=== PATIENT | female | born 1955 | race Caucasian/White ===

== ENCOUNTER 2018-07-15 02:28 | Observation (INO) ==
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
[2018-07-15] MEDS ORDERED: IPRATROPIUM/ALBUTEROL 3 ML AMPUL.NEB NEB ONE (03:36)
[2018-07-15 04:16] LABS: Basophils # (Auto) 0 K/mcL (0.0-0.3); Basophils % (Auto) 0.6 % (0.0-2.0); Eosinophils # (Auto) 0.2 K/mcL (0.0-0.7); Eosinophils % (Auto) 4.9 % (0.0-7.0); Granulocytes % (Auto) 58.9 % (38.0-78.0); Lymphocytes # (Auto) 1.2 K/mcL (1.5-4.8); Lymphocytes % (Auto) 24.3 % (15.5-49.0); Mean Cell Volume 91.5 fL (80.0-100.0); Mean Corpuscular HGB Conc 33.4 g/dL (31.0-36.0); Monocytes # (Auto) 0.6 K/mcL (0.1-0.9); Monocytes % (Auto) 11.3 % (1.0-12.0); Platelet Count 287 K/mcL (140-440); Red Cell Distribution Width 13.1 % (11.5-14.5)
[2018-07-15 04:43] LABS: ALT/SGPT 20 U/l (0-40); Albumin/Globulin Ratio 1.5 (1.0-2.3); Alkaline Phosphatase 118 U/L (39-117); Blood Urea Nitrogen 13 mg/dl (8-23); C-Reactive Protein < 0.3 mg/dl (0.0-0.8); Lipase 85 U/L (7-60)
--- NOTE | 2018-07-15 05:35 | Cat Scan Report ---
CLINICAL INFORMATION: Flank pain COMPARISON: 01/31/[address] TECHNIQUE: 0.625 mm helical slices were obtained from the mid heart through the subtrochanteric regions. Following reconstruction, 2.5 mm sagittal, coronal and axial reformatted images were processed and reviewed at bone and soft tissue windows.The exam was performed using radiation dose optimization techniques including, but not limited to, automated exposure control, adjustment of the mA and/or kV according to patient size and use of iterative reconstruction technique. FINDINGS: Both noncontrasted kidneys are normal and symmetric in size, position, configuration and attenuation: Left is 10.8 x 4.5 cm and the right is 10.5 x 4.8 cm. There is no evidence of renal stone, hydronephrosis or other focal renal lesion. Urinary bladder is unremarkable. Lung bases show no abnormality. No effusion. The visualized heart is grossly normal. Images through the abdomen show the noncontrasted liver to be normal. Gallbladder is surgically absent.The intrahepatic and extra hepatic bile ducts are normal caliber: CBD is 5 mm. The adrenal glands, spleen, pancreas are normal in size, configuration and attenuation. There are surgical clips along the infrarenal abdominal wall - presumably due to interval aortic graft placement. Lack of intravenous contrast precludes aortic lumen evaluation. Images through the pelvis show hysterectomy/oophorectomy changes. The stomach, duodenal bulb and descending duodenum are markedly dilated with abrupt tapering at the descending/transverse duodenal junction into a diminutive transverse duodenum. The remainder of the small and large bowel show mild symmetric dilatation compatible with moderate ileus. No free air, free fluid or adenopathy. Bone windows show severe degenerative disc disease in the lower lumbar spine IMPRESSION: 1. No evidence of stone or hydronephrosis - both noncontrasted kidneys, upper collecting systems, and urinary bladder are normal. 2. Marked dilatation of the stomach, duodenal bulb and descending duodenum with abrupt narrowing in the proximal transverse duodenum. This could indicate partial duodenal obstruction. Consider either upper endoscopy or small bowel follow through study with water-soluble contrast. 3. Mild ileus 4. Surgical clips around the infrarenal abdominal aorta presumably due to interval placement of an aortic graft. On the previous CT, there was a critical stenosis in the infrarenal abdominal aorta Interpreted and Authenticated by: José Bradford 07/15/18
[2018-07-15 07:55] LABS: Appearance,Urine CLEAR; Bacteria,Urine 0 /hpf (0); Bilirubin,Urine NEG (NEG); Color,Urine YELLOW; Glucose,Urine (UA) NEGATIVE (NEG); Leukocyte Esterase,Urine NEG /uL (NEG); Mucus,Urine FEW /hpf (0); Protein,Urine 30 mg/dL (NEG); Specific Gravity,Urine 1.021 (1.000-1.035); Urine Amorphous Crystals FEW /hpf (0); Urine Blood NEG mg/dL (<0.03); Urine Hyaline Cast 4 /lpf (0-2); Urine RBC < 1 /hpf (0-1); Urine Squamous Epithelial Cell < 1 /hpf (0-4); Urine WBC 1 /hpf (0-4); Urobilinogen,Urine NEG (NEG)
--- NOTE | 2018-07-15 10:22 | Internal Medicine Consult Note ---
Medical - CN: HPI - Data of Consult Patient: new to practice Consult date: 07/15/18 Primary Care Provider: Nikki Lopes - Consult Narrative Reason for consult: abdominal pain, abnormal CT History of present illness: Ms. Olmstead is a 62 year old F smoker with a remote history of PUD who has a long history of anxiety and presented to ER after her lorazepam was discontinued. She is a vague and tangential historian and it has take a great deal of time to obtain her history. She initially thought her week long history of vague epigastric pain was due to lorazepam withdrawal, but CT suggested obstruction in the transverse duodenum. She also mentions she has had abdominal pain since undergoing aortic endarterectomy in March. About a week ago, she developed epigastric pain that radiates to the back. It is constantly present and persists despite taking Nexium. Eating worsens the pain. She complains of nausea without vomiting. She has reflux and a history of nutcracker esophagus. She complains of dysphagia to solids. Weight has been stable. She avoids ASA/NSAIDS in light of her history of PUD. 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 She has been having increased trouble with migraine and is taking Tylenol 3. Bowel habit is fairly normal although she has noted red blood with BMs; she has not previously had a colonoscopy and is "not going to go there". She is eager to pursue care outside the [facility] and would like her follow up to be organized with Felisa Urbano at [facility]. CC: - Constitutional Constitutional: Present: as per HPI, headache(s). Absent: anorexia, weight gain, weight loss - Gastrointestinal Gastrointestinal: Present: as per HPI, abdominal pain, dysphagia, heartburn. Absent: coffee ground emesis, melena, vomiting - Psychiatric Psychiatric: Present: as per HPI, anxiety Medical - CN: PMH Medical history: PTSD, anxiety, closed head injury, restless leg syndrome, nutcracker esophagus, "slow gastric emptying", peptic ulcer disease Surgical history: aortic endarterectomy 03/25, cholecystectomy with ERCP, Botox to pylorus, nasal septoplasty, breast biopsy Pertinent family history: Mother cancer, diabetes father diabetes, [place], CVA Social history: Lives alone. Just gave notice at her rental. May soon be homeless as she has not found another living situation. Functional capacity: independent ambulation Smoking status: Current every day smoker Have you smoked in the last 12 months: Yes Drug use: none Alcohol use: none Medical - CN: Meds Home Medications Medication Instructions Recorded Confirmed Type Clopidogrel Bisulfate [Plavix] 75 mg PO DAILY #30 tab 06/01/16 10/15/17 Rx Advair 500-50 Diskus 12/13/16 History Aspirin [Adult Low Dose Aspirin EC] 81 mg PO DAILY 12/13/16 10/15/17 History Esomeprazole Magnesium [Nexium] 20 mg PO DAILY 12/13/16 10/15/17 History Gabapentin TID 12/13/16 History LORazepam [Ativan] 1 mg PO TID 12/13/16 10/15/17 History Levothyroxine Sodium [Synthroid] 112 mcg PO DAILY 12/13/16 10/15/17 History Lisinopril [Zestril] 10 mg PO DAILY 12/13/16 10/15/17 History PARoxetine HCL [Paroxetine HCl] 30 mg PO DAILY 12/13/16 10/15/17 History Trileptal DAILY 12/13/16 History rOPINIRole [Requip] 1 mg PO BID 12/13/16 10/15/17 History Hyoscyamine [Levsin Sr] 0.375 mg PO BID 3 Days #6 06/08/17 10/15/17 Rx tab.sr.12h Cephalexin [Keflex] 250 mg PO QID #40 cap 01/21/18 Rx traMADol [Ultram] 50 mg PO Q4-6HP PRN #14 tablet 01/21/18 Rx Ondansetron [Zofran ODT] 4 mg SL Q4-6HP PRN #10 tab 01/25/18 Rx Peg 3350/Na Sulf,Bicarb,Cl/KCl 4,000 ml PO ONCE #1 oral.daryl 01/31/18 Rx [Golytely] Allergies Allergy/AdvReac Type Severity Reaction Status Date / Time Gatifloxacin [From Tequin] Allergy Rash Verified 06/17/18 12:00 lamotrigine [From Lamictal] Allergy Anaphylaxis Verified 06/17/18 12:00 levofloxacin [From Levaquin] Allergy Rash Verified 06/17/18 12:00 Penicillins Allergy Rash Verified 06/17/18 12:00 pork derived (porcine) Allergy Anaphylaxis Verified 06/17/18 12:00 rice Allergy Swelling Verified 06/17/18 12:00 Sulfa (Sulfonamide Allergy Rash Verified 06/17/18 12:00 Antibiotics) isotretinoin [From Accutane] AdvReac Verified 06/17/18 12:00 nitrofurantoin AdvReac Verified 06/17/18 12:00 [From Macrobid] prednisone AdvReac Anxiety Verified 06/17/18 12:00 Medical - CN: Exam - Constitutional Vitals: Temp Pulse Resp BP Pulse Ox 97.0 F 65 18 111/78 98 07/15/18 02:32 07/15/18 09:46 07/15/18 03:45 07/15/18 09:46 07/15/18 09:46 General appearance: average body habitus, cooperative, no acute distress - Head Head exam: Present: atraumatic, normal inspection, normocephalic - Neck Neck exam: Absent: lymphadenopathy, normal inspection, thyromegaly - Respiratory Respiratory exam: Present: normal respiratory exam, CTAB - Cardiovascular Cardiovascular exam: Present: normal rate and rhythm. Absent: gallop, rubs, systolic murmur - GI/Abdominal GI/Abdominal exam: Present: normal bowel sounds, soft. Absent: organomegaly, rigid Additional comments: no succussion splash - Psychiatric Additional comments: pressured speech - Skin Skin exam: Present: dry, normal color, warm Medical - CN: Result - Labs CBC & Chem 7: 07/15/18 03:26 07/15/18 03:26 Labs: Short CBC 07/15/18 Range/Units 03:26 WBC 5.1 (4.5-11.0) K/mcL Hgb 12.2 (12.0-15.0) g/dL Hct 36.6 (36.0-48.0) % Plt Count 287 (140-440) K/mcL BMP 07/15/18 03:26 Sodium 138 Potassium 3.8 Chloride 99 Carbon Dioxide 26 BUN 13 Creatinine 1.0 Glucose 89 Calcium 9.1 Cardiac Enzymes 07/15/18 Range/Units 03:26 Troponin T < 0.01 (0-0.03) ng/ml Liver Function 07/15/18 Range/Units 03:26 Total Bilirubin < 0.2 (0.0-1.0) mg/dL AST 29 (0-37) U/l ALT 20 (0-40) U/l Alkaline Phosphatase 118 H (39-117) U/L Albumin 4.0 (3.2-5.2) gm/dL Urine 07/15/18 Range/Units 06:51 Urine Color Yellow Urine Appearance Clear Urine pH 8.0 (5.0-9.0) Ur Specific [place] 1.021 (1.000-1.035) Urine Protein 30 A (NEG) mg/dL Urine Glucose (UA) Negative (NEG) mg/dL Medical - CN: A/P (1) Abnormal CT of the abdomen Status: Acute Assessment and plan: CT suggests obstruction of the transverse duodenum. Will check a fasting gastrin for Sylvia-Trujillo syndrome in light of her history of chronic ulcer disease. Will also check a serum salicylate level. Will check ESR/CRP as Crohn's might present like this as well. Will arrange for EGD today. Further recommendations will be forthcoming after EGD.
[2018-07-15] MEDS ORDERED: DIATRIZOATE MEGLU/DIATRIZO SOD 30 ML BOTTLE PO ONE (10:25)
[2018-07-15] MEDS ORDERED: IPRATROPIUM/ALBUTEROL 3 ML AMPUL.NEB NEB PRN (10:38)
[2018-07-15] MEDS ORDERED: ACETAMINOPHEN 1,000 MG/100 ML BOTTLE IV PRN (10:38)
[2018-07-15] MEDS ORDERED: ACETAMINOPHEN 325 MG TABLET PO PRN (10:38)
[2018-07-15] MEDS ORDERED: MAGNESIUM SULFATE 2 GM/50 ML BAG IV PRN (10:38)
[2018-07-15] MEDS ORDERED: ONDANSETRON 4 MG/2 ML VIAL IV PRN (10:38)
[2018-07-15] MEDS ORDERED: traZODone HCL 50 MG TABLET PO PRN (10:38)
[2018-07-15] MEDS: 0.9 % SODIUM CHLORIDE 1,000 ML IV SCH (11:37)
[2018-07-15] MEDS ORDERED: LORazepam 2 MG/ML VIAL IV ONE ×2 (11:40→16:34)
--- NOTE | 2018-07-15 11:41 | Internal Med History&Physical ---
Medical - H&P: HPI Patient information: Note initiated : 07/15/18 at 11:41 am Service Date, if different from initiated Date: [] Patient: Fernanda Olmstead a 62 y/o F admitted on 07/15/18 for Withdrawl From Lorazapam. Chief Complaint: [] Chief complaint: abd pain History of present illness: Ms. Olmstead is a 62 year old F with a history of peripheral vascular disease/AAA and anxiety disorder who presents to the ER with worsening abdominal pain that started roughly 24-hour prior to presentation. Pain is described as an ache from upper abdomen radiating to back, associated with loss of appetite, no associated fever vomiting. Patient had an episode of diarrhea yesterday. She attributes her symptoms are related to withdrawal symptoms recent discontinuation of benzodiazepine. She denies associated fever chills and myalgia chest pain or shortness of breath. Initial workup in the ER was with small bowel obstruction at the transverse duodenum. GI was consulted based on radiology's recommendations for upper endoscopy in light of proximal obstruction. hospitalist service was consulted for evaluation At the time of admission patient does anxious but alert oriented. She was able to answer most questions provide history as above. ROS 10 point ROS performed and is negative except for as discussed above Medical - H&P: PMH Medical history: History of PTSD AAA repair 03/25 Cholecystectomy History of previous Botox/upper endoscopy Nutcracker esophagus Peptic ulcer disease restless leg syndrome Anxiety disorder Pertinent family history: Mother cancer, diabetes father diabetes, [place], CVA Social history: Lives alone Smoking status: Current every day smoker Have you smoked in the last 12 months: Yes Medical - H&P: Meds Home Medications Medication Instructions Recorded Confirmed Type Clopidogrel Bisulfate [Plavix] 75 mg PO DAILY #30 tab 06/01/16 07/15/18 Rx Aspirin [Adult Low Dose Aspirin EC] 81 mg PO DAILY 12/13/16 07/15/18 History Esomeprazole Magnesium [Nexium] 20 mg PO DAILY 12/13/16 07/15/18 History Levothyroxine Sodium [Synthroid] 112 mcg PO DAILY 12/13/16 07/15/18 History Lisinopril [Zestril] 10 mg PO DAILY 12/13/16 07/15/18 History PARoxetine HCL [Paroxetine HCl] 30 mg PO DAILY 12/13/16 07/15/18 History rOPINIRole [Requip] 1 mg PO BID 12/13/16 07/15/18 History Ondansetron [Zofran ODT] 4 mg SL Q4-6HP PRN #10 tab 01/25/18 07/15/18 Rx Albuterol Sulfate 2 puff INH Q4HP PRN 07/15/18 07/15/18 History Budesonide/Formoterol Fumarate 2 puff INH BID 07/15/18 07/15/18 History [Symbicort 80-4.5 Mcg Inhaler] Gabapentin [Neurontin] 900 mg PO TID 07/15/18 07/15/18 History OXcarbazepine [Trileptal] 150 mg PO DAILY 07/15/18 07/15/18 History Allergies Allergy/AdvReac Type Severity Reaction Status Date / Time lamotrigine [From Lamictal] Allergy Severe Anaphylaxis Verified 07/15/18 10:41 pork derived (porcine) Allergy Severe Anaphylaxis Verified 07/15/18 10:41 rice Allergy Intermediate Swelling Verified 07/15/18 10:41 Gatifloxacin [From Tequin] Allergy Mild Rash Verified 07/15/18 10:41 levofloxacin [From Levaquin] Allergy Mild Rash Verified 07/15/18 10:41 Penicillins Allergy Mild Rash Verified 07/15/18 10:41 Sulfa (Sulfonamide Allergy Mild Rash Verified 07/15/18 10:41 Antibiotics) prednisone AdvReac Mild Anxiety Verified 07/15/18 10:41 isotretinoin [From Accutane] AdvReac Verified 06/17/18 12:00 nitrofurantoin AdvReac Verified 06/17/18 12:00 [From Macrobid] Medical - H&P: Exam - Constitutional Vitals: Temp Pulse Resp BP Pulse Ox 97.0 F 65 18 111/78 98 07/15/18 02:32 07/15/18 09:46 07/15/18 03:45 07/15/18 09:46 07/15/18 09:46 General appearance: average body habitus, cooperative, no acute distress Exam: Alert and oriented Pupils symmetric Oral cavity dry No eardischarge Head normocephalic S1 and S2 regular rhythm Diminished breath sounds bases Abdomen soft nondistended minimally tender on palpation Lower extremity no cyanosis clubbing or joint swelling Skin no suspicious lesion Psych alert cooperative minimal anxiety Neurologic nonfocal Medical - H&P: Reslt - Labs CBC & Chem 7: 07/16/18 04:31 07/16/18 04:31 Labs: Short CBC 07/15/18 Range/Units 03:26 WBC 5.1 (4.5-11.0) K/mcL Hgb 12.2 (12.0-15.0) g/dL Hct 36.6 (36.0-48.0) % Plt Count 287 (140-440) K/mcL BMP 07/15/18 03:26 Sodium 138 Potassium 3.8 Chloride 99 Carbon Dioxide 26 BUN 13 Creatinine 1.0 Glucose 89 Calcium 9.1 Cardiac Enzymes 07/15/18 Range/Units 03:26 Troponin T < 0.01 (0-0.03) ng/ml Liver Function 07/15/18 Range/Units 03:26 Total Bilirubin < 0.2 (0.0-1.0) mg/dL AST 29 (0-37) U/l ALT 20 (0-40) U/l Alkaline Phosphatase 118 H (39-117) U/L Albumin 4.0 (3.2-5.2) gm/dL Urine 07/15/18 Range/Units 06:51 Urine Color Yellow Urine Appearance Clear Urine pH 8.0 (5.0-9.0) Ur Specific [place] 1.021 (1.000-1.035) Urine Protein 30 A (NEG) mg/dL Urine Glucose (UA) Negative (NEG) mg/dL Medical - H&P: A/P (1) Partial small bowel obstruction Current visit: Yes Status: Acute * Partial small bowel obstruction-continue bowel rest/crystalloids. GI consult for upper endoscopy in light of CT findings as above proximal transverse duodenum narrowing. Patient will undergo upper endoscopy * Abdominal pain secondary to above-continue bowel rest/opioids as needed * History of aortic aneurysm status post repair. * History of CAD on aspirin and Plavix * Neuropathy on gabapentin * Hypothyroidism continue thyroxine * Anxiety disorder on paroxetine. Benzodiazepine was recently discontinued by primary care physician * Reactive airway disease on Advair * Full code * Prophylaxis Arixtra Plan * Bowel rest * GI consult * Crystalloids/antiemetics/analgesics * Presents to medical condition management as above
[2018-07-15] MEDS ORDERED: KETAMINE HCL 50 MG/ML ML IV PRN (11:52)
[2018-07-15] MEDS ORDERED: MIDAZOLAM 2 MG/2 ML VIAL IV SCH (12:00)
[2018-07-15] MEDS ORDERED: PROPOFOL 200 MG/20 ML VIAL IV SCH (12:00)
[2018-07-15] MEDS ORDERED: PROPOFOL 20 ML IV ONE (15:36)
[2018-07-15] MEDS ORDERED: MIDAZOLAM 2 MG/2 ML VIAL ONE (15:36)
[2018-07-15] MEDS ORDERED: LORazepam 2 MG/ML VIAL ONE (16:40)
[2018-07-15] MEDS: 0.9 % SODIUM CHLORIDE 10 ML SYRINGE IV SCH ×2 (18:29→20:01)
--- NOTE | 2018-07-15 18:36 | XRay Report ---
CLINICAL INFORMATION: rule out bowel obstruction TECHNIQUE: Following dramatic teacher film, interview was administered and serial films were obtained over 90 minutes. COMPARISON: Abdomen pelvic CT 07/15/2018. FINDINGS: The stomach, duodenal bulb and proximal duodenum are moderately dilated with abrupt narrowing in the mid descending duodenum. This results in only partial obstruction. The remainder of the duodenum, jejunum and ileum are normal in contour and caliber. The plica circulares folds and wall are normal and uniform. Small transit time is approximately 80 minutes. IMPRESSION: Moderate symmetric narrowing of the mid descending duodenum resulting in moderate gastric and proximal duodenal dilatation. Etiology is uncertain: this could indicate stricture or extrinsic mass. The CT was performed without either oral or IV contrast making this region more difficult to evaluate. Suggest: Endoscopy Interpreted and Authenticated by: José Bradford 07/15/18
[2018-07-15] MEDS: DOCUSATE SODIUM 100 MG CAPSULE PO SCH (19:54)
[2018-07-15] MEDS ORDERED: SENNOSIDES/DOCUSATE SODIUM 1 TAB TABLET PO SCH (21:00)
[2018-07-15] MEDS ORDERED: HEPARIN 5,000 UNIT/ML VIAL SQ SCH (21:00)
[2018-07-16] MEDS: 0.9 % SODIUM CHLORIDE 10 ML SYRINGE IV SCH (04:16)
[2018-07-16 06:12] LABS: Mean Cell Volume 91.7 fL (80.0-100.0); Mean Corpuscular HGB Conc 33.4 g/dL (31.0-36.0); Platelet Count 279 K/mcL (140-440); RBC 3.91 M/mcL (4.00-5.20); Red Cell Distribution Width 13.3 % (11.5-14.5)
[2018-07-16 07:05] LABS: ALT/SGPT 17 U/l (0-40); Albumin 3.6 gm/dL (3.2-5.2); Albumin/Globulin Ratio 1.4 (1.0-2.3); Alkaline Phosphatase 102 U/L (39-117); Bilirubin,Direct < 0.2 mg/dL (0.0-0.3); Blood Urea Nitrogen 16 mg/dl (8-23); Gamma Glutamyl Transpeptidase 14 U/L (5-36); Uric Acid 4.5 mg/dL (2.5-8.0)
[2018-07-16 08:02] LABS: Band Neutrophils % 2 % (0-10); Eosinophils % (Manual) 1 % (0-7); Lymphocytes % 30 % (15-49); Monocytes % (Manual) 6 % (1-12); Platelet Estimate NORMAL (NORMAL); RBC Morphology NORMAL (NORMAL); Segmented Neutrophils % 61 % (38-78)
[2018-07-16] MEDS: 0.9 % SODIUM CHLORIDE 1,000 ML IV SCH (08:03)
[2018-07-16] MEDS: DOCUSATE SODIUM 100 MG CAPSULE PO SCH (08:26)
[2018-07-16] MEDS ORDERED: FONDAPARINUX SODIUM 2.5 MG/0.5 ML SYRINGE SQ SCH (09:00)
--- NOTE | 2018-07-16 09:20 | Discharge Summary ---
Medical - DS: Prov Patient information: Note initiated : 07/16/18 at 9:16 am Service Date, if different from initiated Date: [] Patient: Fernanda Olmstead 62 y/o F admitted on 07/15/18 for Withdrawl From Lorazapam. Chief Complaint: [] Date of admission: 07/15/18 10:24 Discharge date: 07/16/18 Primary care physician: Nikki Lopes Consults: 07/15/18 Consult to Physician [CONS] Stat Comment: Consulting Provider: Cornelius Srinivasan Reason For Exam: Physician to Consult Consult to Physician [CONS] Stat Comment: Consulting Provider: Donis Crane Reason For Exam: Physician to Consult Consult to Physician [CONS] Stat Comment: Consulting Provider: Adarsh Higginbotham Reason For Exam: Physician to Consult 07/15/18 09:13 Consult to Physician [CONS] Stat Comment: Consulting Provider: Chuyita Rivera Reason For Exam: Physician to Consult Medical - DS: Meds - Discharge Medications Active and Home Medications: Home Medications Clopidogrel Bisulfate [Plavix] 75 mg PO DAILY #30 tab 06/01/16 [Rx Confirmed 07/15/18 Last Taken 07/14/18] Aspirin [Adult Low Dose Aspirin EC] 81 mg PO DAILY 12/13/16 [History Confirmed 07/15/18 Last Taken 09/22/17] Esomeprazole Magnesium [Nexium] 20 mg PO DAILY 12/13/16 [History Confirmed 07/15/18 Last Taken 07/14/18] Levothyroxine Sodium [Synthroid] 112 mcg PO DAILY 12/13/16 [History Confirmed 07/15/18 Last Taken 07/14/18] Lisinopril [Zestril] 10 mg PO DAILY 12/13/16 [History Confirmed 07/15/18 Last Taken 07/14/18] PARoxetine HCL [Paroxetine HCl] 30 mg PO DAILY 12/13/16 [History Confirmed 07/15/18 Last Taken 09/22/17] rOPINIRole [Requip] 1 mg PO BID 12/13/16 [History Confirmed 07/15/18 Last Taken 07/14/18] Ondansetron [Zofran ODT] 4 mg SL Q4-6HP PRN #10 tab 01/25/18 [Rx Confirmed 07/15/18 Last Taken Unknown] Albuterol Sulfate 2 puff INH Q4HP PRN 07/15/18 [History Confirmed 07/15/18 Last Taken 07/14/18 21:00] Budesonide/Formoterol Fumarate [Symbicort 80-4.5 Mcg Inhaler] 2 puff INH BID 07/15/18 [History Confirmed 07/15/18 Last Taken 07/14/18 21:00] Gabapentin [Neurontin] 900 mg PO TID 07/15/18 [History Confirmed 07/15/18 Last Taken Unknown] OXcarbazepine [Trileptal] 150 mg PO DAILY 07/15/18 [History Confirmed 07/15/18 Last Taken Unknown] Medical - DS: Hosp Hospital course: Discharge diagnosis * Partial small bowel obstruction-clinically resolved with conservative management. Upper endoscopy unremarkable. Small bowel follow-through no evidence of obstruction. * Abdominal pain secondary to above-continue bowel rest/opioids as needed * History of aortic aneurysm status post repair. * History of CAD continued on aspirin and Plavix * Neuropathy managed on gabapentin * Hypothyroidism continue thyroxine * Anxiety disorder on paroxetine. Benzodiazepine was recently discontinued by primary care physician * Reactive airway disease on Advair Brief hospital course Ms. Olmstead is a 62 year old F with a history of peripheral vascular disease/AAA and anxiety disorder who presents to the ER with worsening abdominal pain that started roughly 24-hour prior to presentation. Pain is described as an ache from upper abdomen radiating to back, associated with loss of appetite, no associated fever vomiting. Patient had an episode of diarrhea yesterday. She attributes her symptoms are related to withdrawal symptoms recent discontinuation of benzodiazepine. She denies associated fever chills and myalgia chest pain or shortness of breath. Initial workup in the ER was with small bowel obstruction at the transverse duodenum. GI was consulted based on radiology's recommendations for upper endoscopy in light of proximal obstruction. hospitalist service was consulted for evaluation 07/16-patient underwent upper endoscopy/small bowel follow-through with resultant spontaneous resolution of symptoms/obstruction with continued management. No major findings on endoscopy/abdominal imaging. Patient doing better. Tolerating diet ambulating. Abdominal pain resolved. Multiple bowel movements. Discharge home with advise as below Discharge diagnosis: . - Time Spent with Patient Total time spent providing and/or coordinating discharge services: Greater than 30 minutes Medical - DS: Exam - Constitutional Vitals: Vital Signs Temp Pulse Pulse Resp BP BP Pulse Ox 07/16/18 08:14 98.1 F 66 153/88 97 07/16/18 08:00 64 14 95 07/16/18 03:39 98.0 F 64 14 117/74 95 07/15/18 23:07 98.1 F 58 L 12 143/93 100 07/15/18 19:48 64 16 07/15/18 18:37 97.0 F 64 12 150/84 99 07/15/18 16:40 98.3 F 72 16 106/71 96 07/15/18 16:02 83 16 90/58 96 07/15/18 15:52 77 16 83/59 100 07/15/18 15:51 76 14 105/64 100 07/15/18 15:34 65 14 118/86 98 07/15/18 10:38 98.3 F 64 14 107/66 98 07/15/18 10:24 98 F 16 105/66 98 07/15/18 09:46 65 111/78 98 07/15/18 09:31 69 118/93 98 Intake and Output 07/15/18 07/16/18 07/16/18 21:59 05:59 13:59 Intake Total 1520 480 Balance 1520 480 Intake: Oral 1520 480 Other: Meal Nourishment/Supplement Breakfast Percent of Meal Consumed 100% 100% Feeding Ability Independent Independent Stool Size Small Large Stool Consistency Liquid Loose # Voids 1 3 # Bowel Movements 1 1 Weight 124 lb 3.2 oz Medical - DS: Data Labs on day of discharge: Labs from last 24 hours 07/16/18 07/16/18 07/15/18 04:31 04:31 10:05 WBC 5.1 RBC 3.91 L Hgb 11.9 L Hct 35.8 L MCV 91.7 MCH 30.6 MCHC 33.4 RDW 13.3 Plt Count 279 MPV 7.8 Total Counted 100 Seg Neutrophils % 61 Band Neutrophils % 2 Lymphocytes % 30 Monocytes % (Manual) 6 Eosinophils % (Manual) 1 Platelet Estimate Normal RBC Morphology Normal ESR Sodium 136 Potassium 3.9 Chloride 102 Carbon Dioxide 23 Anion Gap 11.0 BUN 16 Creatinine 0.7 GFR Calculation 93 Glucose 97 Uric Acid 4.5 Calcium 8.5 L Phosphorus 3.9 Magnesium 1.8 Total Bilirubin 0.2 Direct Bilirubin < 0.2 GGT 14 AST 24 ALT 17 Alkaline Phosphatase 102 Lactate Dehydrogenase 177 C-Reactive Protein Total Protein 6.2 Albumin 3.6 Globulin 2.6 Albumin/Globulin Ratio 1.4 Triglycerides 45 Gastrin Pending Salicylates 07/15/18 07/15/18 07/15/18 06:12 06:12 06:12 WBC RBC Hgb Hct MCV MCH MCHC RDW Plt Count MPV Total Counted Seg Neutrophils % Band Neutrophils % Lymphocytes % Monocytes % (Manual) Eosinophils % (Manual) Platelet Estimate RBC Morphology ESR 13 Sodium Potassium Chloride Carbon Dioxide Anion Gap BUN Creatinine GFR Calculation Glucose Uric Acid Calcium Phosphorus Magnesium Total Bilirubin Direct Bilirubin GGT AST ALT Alkaline Phosphatase Lactate Dehydrogenase C-Reactive Protein < 0.3 Total Protein Albumin Globulin Albumin/Globulin Ratio Triglycerides Gastrin Salicylates < 0.3 Medical - DS: A/P - Patient/Caregiver Discharge Instructions Activity: increase activity as tolerated Diet: Regular Diet Additional Instructions: Follow-up PCP in 5 days. Please schedule follow-up prior discharge return to emergency room if worsening abdominal pain nausea vomiting - Problem Maintenance (1) Partial small bowel obstruction Status: Acute - Follow up Plan Follow up with: Nikki Lopes ARNP [Primary Care Provider] - Disposition: Home, Self-Care Prognosis: Fair Rehab Potential: Fair I certify that the patient requires SNF services: No Overall status at discharge: patient is back to baseline
--- NOTE | 2018-07-16 11:14 | EGD Procedure Note ---
EGD Procedure Notes - Procedure Information Patient information: Note initiated : 07/16/18 at 11:12 am Service Date: 07/15/18 Patient: Fernanda Olmstead 62 y/o F admitted on 07/15/[address] Pre-op diagnosis general: Abnormal CT Post-Op Diagnosis general: Gastroparesis vs incomplete small bowel obstruction. Procedure: Esophogogastroduodenoscopy Procedure Narrative: The procedure, alternatives and risks were discussed with the patient and the patient's questions were answered. With endoscopist-administered intravenous sedation, the Olympus video endoscope was introduced into the esophagus. The esophagus, stomach, and duodenum were examined sequentially. There is no esophagitis nor hiatal hernia. Food was seen in the body of the stomach. The gastric mucosa, antrum, pyloric ring and duodenum were otherwise normal. The scope was advanced to the third portion of the duodenum and no definite obstruction was seen. Antral biopsy was taken for NASH test. The scope was withdrawn. Assessment: Gastroparesis vs incomplete small bowel obstruction. Will proceed with small bowel follow through.
== END 2018-07-16 10:10 | disposition home or self-care (01) ==
LOC: MEDSUR 02:28 → ED 02:28 → MEDSUR 10:28
PROVIDERS: ADMIT Internal Medicine; ATTEND Internal Medicine

== ENCOUNTER 2018-09-14 23:24 | Observation (INO) ==
[2018-09-14] MEDS ORDERED: IOPAMIDOL 100 ML BOTTLE IV ONE (23:25)
[2018-09-14] MEDS ORDERED: ONDANSETRON 4 MG ODT TABLET SL ONE (23:51)
[2018-09-15] MEDS ORDERED: LACTATED RINGERS 1,000 ML IV ONE (00:18)
[2018-09-15] MEDS ORDERED: ONDANSETRON 4 MG/2 ML VIAL IV ONE ×2 (00:18→01:19)
[2018-09-15] MEDS ORDERED: PANTOPRAZOLE 40 MG VIAL IV ONE (00:18)
[2018-09-15 01:16] LABS: Basophils # (Auto) 0 K/mcL (0.0-0.3); Basophils % (Auto) 0.3 % (0.0-2.0); Eosinophils # (Auto) 0 K/mcL (0.0-0.7); Eosinophils % (Auto) 0.4 % (0.0-7.0); Granulocytes % (Auto) 84.5 % (38.0-78.0); Hematocrit 36.2 % (36.0-48.0); Hemoglobin 11.9 g/dL (12.0-15.0); Lymphocytes # (Auto) 0.6 K/mcL (1.5-4.8); Lymphocytes % (Auto) 8.3 % (15.5-49.0); Mean Cell Volume 91.6 fL (80.0-100.0); Mean Corpuscular HGB Conc 32.9 g/dL (31.0-36.0); Mean Platelet Volume 7.7 fL (7.4-10.4); Monocytes # (Auto) 0.5 K/mcL (0.1-0.9); Monocytes % (Auto) 6.5 % (1.0-12.0); Platelet Count 247 K/mcL (140-440); RBC 3.95 M/mcL (4.00-5.20); Red Cell Distribution Width 13.6 % (11.5-14.5); WBC 7.1 K/mcL (4.5-11.0)
[2018-09-15 01:38] LABS: ALT/SGPT 17 U/l (0-40); AST/SGOT 26 U/l (0-37); Albumin 3.9 gm/dL (3.2-5.2); Albumin/Globulin Ratio 1.7 (1.0-2.3); Alkaline Phosphatase 89 U/L (39-117); Bilirubin,Total 0.4 mg/dL (0.0-1.0); Blood Urea Nitrogen 6 mg/dl (8-23); Calcium 9.1 mg/dl (8.6-10.4); Carbon Dioxide 27 mmol/L (22-30); Chloride 92 mmol/L (96-108); Globulin 2.3 gm/dL (2.2-3.7); Glomerular Filtration Rate 97; Glucose 100 mg/dL (70-105); Potassium 3.5 mmol/L (3.3-5.1); Sodium 130 mmol/L (133-145)
[2018-09-15] MEDS ORDERED: HYDROmorphone 2 MG/ML VIAL IV PRN (02:02)
[2018-09-15] MEDS ORDERED: ONDANSETRON 4 MG/2 ML VIAL IV PRN (03:46)
[2018-09-15] MEDS ORDERED: DIATRIZOATE MEGLU/DIATRIZO SOD 30 ML BOTTLE PO ONE (04:06)
[2018-09-15] MEDS ORDERED: LORazepam 1 MG TABLET PO PRN (05:52)
[2018-09-15] MEDS ORDERED: NICOTINE 14 MG PATCH TOPICAL ONE (05:52)
[2018-09-15] MEDS: 0.9 % SODIUM CHLORIDE 1,000 ML IV SCH ×3 (05:56→22:48)
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
--- NOTE | 2018-09-15 07:19 | XRay Report ---
CLINICAL INFORMATION: constipation r/o COMPARISON: 07/15/2018 FINDINGS: The stomach and proximal small bowel are mildly dilated with air-fluid levels. The distal small bowel and colon are relatively decompressed. No free air, soft tissue mass or organomegaly. Surgical clips overlie the mid lumbar spine region IMPRESSION: Partial mid jejunal obstruction Interpreted and Authenticated by: José Bradford 09/15/18
--- NOTE | 2018-09-15 09:29 | XRay Report ---
CLINICAL INFORMATION: preop evaluation COMPARISON: 08/05/2018 FINDINGS: The heart size, mediastinum and pulmonary vessels are unremarkable. The lungs are clear. There are no effusions. The bones and soft tissues are within normal limits. IMPRESSION: Normal chest. Interpreted and Authenticated by: José Bradford 09/15/18
--- NOTE | 2018-09-15 12:45 | Cat Scan Report ---
CLINICAL INFORMATION: Upper abdominal pain and nausea COMPARISON: 01/31/2018 TECHNIQUE: Following enteric contrast, 80 cc of Isovue-300 were injected intravenously, and 60 seconds later, 0.625 mm helical slices were obtained from the mid heart through the subtrochanteric regions. Following reconstruction, 2.5 mm sagittal, coronal and axial reformatted images were processed and reviewed at bone, lung and soft tissue windows. Five minutes later, 0.625 mm helical slices were obtained from the mid heart through the kidneys and viewed at soft tissue windows.The exam was performed using radiation dose optimization techniques including, but not limited to, automated exposure control, adjustment of the mA and/or kV according to patient size and use of iterative reconstruction technique. FINDINGS: Lung bases show no abnormality - no effusion. The visualized heart is normal. Images through the abdomen show minimal fatty change within the liver, but no focal hepatic lesion. The gallbladder is surgically absent. Intrahepatic and common bile ducts are normal caliber: CBD is 6 mm. Both kidneys, adrenal glands, spleen, pancreas, and aorta, including aortic branches, are normal in size, configuration and attenuation without focal lesion. Pelvic images show anteflexed postmenopausal uterus to be normal in size: Five x 2 cm. Urinary bladder is normal. A partial small bowel obstruction of the mid jejunum is due to adhesions or stricture. Stomach and proximal small bowel are mildly dilated and the distal small bowel and colon are relatively decompressed Transition point is seen on axial image 85, coronal image 50 and sagittal image 111. Small amount of free fluid is noted in the true pelvis. Bone windows show L4-5 disc protrusion with right-sided asymmetry resulting in moderate right IV foraminal narrowing. There is no focal osseous lesion. IMPRESSION: Partial mid jejunal obstruction due to adhesion or stricture in the mid abdomen. Small amount of free fluid in the deep pelvis. No free air. Interpreted and Authenticated by: José Bradford 09/15/18
--- NOTE | 2018-09-15 12:48 | XRay Report ---
CLINICAL INFORMATION: small bowel obstruciton COMPARISON: Abdomen and pelvic CT 09/15/2018. TECHNIQUE: Following accountant machine processing film, water-soluble contrast was administered orally and serial abdomen films were obtained over 1.5 hours. Radiologist and spot compression of the terminal ileum and bowel loops FINDINGS: The stomach, duodenum, jejunum and ileum are normal in contour and caliber with thin uniform wall and plicas circulares folds. No adhesions or stricture can be identified. No evidence of obstruction. Small bowel transit time is approximately 70 minutes IMPRESSION: Negative exam Interpreted and Authenticated by: José Bradford 09/15/18
--- NOTE | 2018-09-15 14:15 | General Surg History&Physical ---
History of Present Illness Patient information: Note initiated : 09/15/18 at 2:13 pm Service Date, if different from initiated Date: [] Patient: Fernanda Olmstead a 63 y/o F admitted on 09/15/18 for constipation with nausea and vomit. Chief Complaint: [] HPI: Ms. Olmstead is a 63 year old F admitted with possible small bowel obstruction. The patient states that she has a history of progressive constipation. Over the last few days her constipation has not been relieved with magnesium citrate. She developed nausea followed by increasing pain with food or liquids. The pain intensified last evening and she developed worsening nausea with vomiting. She had some pain in the right lower quadrant. She was evaluated in the emergency room and was noted to have partial intestinal obstruction with severe constipation. Patient is admitted and will undergo small bowel follow-through. Review of Systems - Constitutional malaise, weakness - EENT Nose, mouth and throat: abnormal hearing, no dizziness, no hoarseness - Breasts no change in shape, no mass, no pain, no swelling - Cardiovascular no chest pain with activity, no dyspnea on exertion, no orthopnea, no palpatations, no syncope - Respiratory no cough, no dyspnea on exertion, no wheezing, no chest congestion - Gastrointestinal abdominal pain, bloating, change in bowel habits, constipation, cramping, heartburn, nausea, vomiting - Genitourinary Genitourinary: no dysuria, no urinary frequency, no urinary hesitancy, no urinary urgency - Musculoskeletal arthralgias, muscle cramps, myalgias, stiffness - Integumentary no new lesions, no pruritus, no rash - Neurological paresthesias, restless legs, tingling, no confusion, no headache(s) - Psychiatric anxiety, depression - Endocrine no fatigue, no heat intolerance, no palpitations - Hematologic/Lymphatic no easy bleeding, no easy bruising, no lymphadenopathy - Allergic/Immunologic no tongue swelling, no throat swelling, no uticaria, no wheezing, no lip swelling Past History Past medical history: Congestive heart failure. Chronic obstructive lung disease. Hypertension. Peripheral vascular disease. TIAs. Abdominal aortic aneurysm March 2018 Gastroparesis. Restless leg syndrome. Anxiety with depression. Chronic constipation Past surgical history: Laparoscopic cholecystectomy. Aortic endarterectomy with tube grafting 20 March 2018 Left breast lumpectomy Past family history: Mother age 89 due to congestive heart failure. Father age 62 due to complications of coronary artery disease and stroke Past social history: Tobacco one pack per day since age 50. Occasional beer. Denies drug use. Single No children Medications and Allergies Home Medications Medication Instructions Recorded Confirmed Type Clopidogrel Bisulfate [Plavix] 75 mg PO DAILY #30 tab 06/01/16 09/15/18 Rx Aspirin [Adult Low Dose Aspirin EC] 81 mg PO DAILY 12/13/16 09/15/18 History Esomeprazole Magnesium [Nexium] 20 mg PO DAILY 12/13/16 09/15/18 History Levothyroxine Sodium [Synthroid] 112 mcg PO DAILY 12/13/16 09/15/18 History Lisinopril [Zestril] 10 mg PO DAILY 12/13/16 09/15/18 History PARoxetine HCL [Paroxetine HCl] 30 mg PO DAILY 12/13/16 09/15/18 History rOPINIRole [Requip] 1 mg PO DAILY 12/13/16 09/15/18 History Ondansetron [Zofran ODT] 4 mg SL Q4-6HP PRN #10 tab 01/25/18 09/15/18 Rx Albuterol Sulfate 2 puff INH Q4HP PRN 07/15/18 09/15/18 History Budesonide/Formoterol Fumarate 2 puff INH BID 07/15/18 09/15/18 History [Symbicort 80-4.5 Mcg Inhaler] Gabapentin [Neurontin] 900 mg PO TID 07/15/18 09/15/18 History OXcarbazepine [Trileptal] 150 mg PO HS 07/15/18 09/15/18 History Furosemide [Lasix] 10 mg PO DAILY 09/15/18 09/15/18 History LORazepam [Ativan] 1 mg PO BID 09/15/18 09/15/18 History rOPINIRole HCL [Requip] 3 mg PO HS 09/15/18 09/15/18 History Allergies Allergy/AdvReac Type Severity Reaction Status Date / Time lamotrigine [From Lamictal] Allergy Severe Anaphylaxis Verified 07/15/18 10:41 pork derived (porcine) Allergy Severe Anaphylaxis Verified 07/15/18 10:41 rice Allergy Intermediate Swelling Verified 07/15/18 10:41 Gatifloxacin [From Tequin] Allergy Mild Rash Verified 07/15/18 10:41 levofloxacin [From Levaquin] Allergy Mild Rash Verified 07/15/18 10:41 Penicillins Allergy Mild Rash Verified 07/15/18 10:41 Sulfa (Sulfonamide Allergy Mild Rash Verified 07/15/18 10:41 Antibiotics) isotretinoin [From Accutane] AdvReac Mild Other Verified 09/15/18 05:15 prednisone AdvReac Mild Anxiety Verified 07/15/18 10:41 nitrofurantoin AdvReac Unknown Unknown Verified 09/15/18 05:15 [From Macrobid] Exam Temp Pulse Resp BP Pulse Ox 98.7 F 63 18 135/78 100 09/15/18 12:00 09/15/18 12:00 09/15/18 12:00 09/15/18 12:00 09/15/18 12:00 - General physical appearance well developed, well nourished, no distress - Eyes PERRL, normal ocular movement. negative: icteric - ENT normal pinna, normal nares, normal mucosa, no congestion, decreased hearing - Head Head exam IM: Present: atraumatic, normal inspection, normocephalic - Neck no masses, no bruits, trachea midline, no lymphadenopathy, no venous distension. negative: diffuse goiter - Cardiovascular Cardiovascular exam IM: Present: normal rate and rhythm, RRR, +S1, +S2. Absent: irregular rhythm, JVD, systolic murmur, tachycardia - Respiratory normal expansion, normal respiratory effort, clear to auscultation - Abdomen Abdomen: Present: soft, tender (mild mid abdominal tenderness; good active bowel sounds; no guarding or rebound; no mass), bowel sounds Hernia: Present: none - Genitourinary Present: normal external genitalia - Integumentary Present: no rash, no growths, no abnormal pigmentation - Neurologic Present: normal coordination, normal sensation - Musculoskeletal Present: normal gait, normal posture - Psychiatric Present: oriented to time, oriented to person, oriented to place, speech is normal, memory intact Assessment and Plan (1) Partial small bowel obstruction Patient will have a small bowel follow-through with Gastrografin. Home medications until this test is complete Status: Acute (2) History of TIA (transient ischemic attack) Status: Chronic (3) Hypertension, essential Status: Chronic (4) Peripheral vascular disease Status: Chronic (5) COPD (chronic obstructive pulmonary disease) Status: Chronic Qualifiers: COPD type: chronic bronchitis Chronic bronchitis type: unspecified Qualified Code(s): J42 - Unspecified chronic bronchitis (6) GERD (gastroesophageal reflux disease) Status: Chronic (7) Anxiety disorder Status: Chronic Qualifiers: Anxiety disorder type: unspecified anxiety disorder Qualified Code(s): F41.9 - Anxiety disorder, unspecified
[2018-09-15] MEDS: GABAPENTIN 300 MG CAPSULE PO SCH ×2 (15:17→20:41)
[2018-09-15] MEDS: POLYETHYLENE GLYCOL 3350 17 GM PACKET PO SCH ×2 (15:17→20:50)
[2018-09-15] MEDS: LORazepam 1 MG TABLET PO SCH (20:42)
[2018-09-15] MEDS ORDERED: Oxcarbazepine [Trileptal] 600 mg Tab PO SCH (21:00)
[2018-09-15] MEDS ORDERED: rOPINIRole 1 MG TABLET PO SCH (21:00)
[2018-09-16] MEDS: 0.9 % SODIUM CHLORIDE 1,000 ML IV SCH ×3 (04:22→06:49)
[2018-09-16] MEDS: POLYETHYLENE GLYCOL 3350 17 GM PACKET PO SCH ×3 (04:23→14:00)
[2018-09-16 06:41] LABS: Basophils # (Auto) 0 K/mcL (0.0-0.3); Basophils % (Auto) 0.8 % (0.0-2.0); Eosinophils # (Auto) 0.2 K/mcL (0.0-0.7); Eosinophils % (Auto) 6.2 % (0.0-7.0); Hematocrit 31.7 % (36.0-48.0); Hemoglobin 10.5 g/dL (12.0-15.0); Lymphocytes # (Auto) 1.7 K/mcL (1.5-4.8); Lymphocytes % (Auto) 47.8 % (15.5-49.0); Mean Cell Volume 91.6 fL (80.0-100.0); Mean Platelet Volume 7.7 fL (7.4-10.4); Monocytes # (Auto) 0.4 K/mcL (0.1-0.9); Monocytes % (Auto) 12.2 % (1.0-12.0); Platelet Count 184 K/mcL (140-440); RBC 3.47 M/mcL (4.00-5.20); Red Cell Distribution Width 13.7 % (11.5-14.5); WBC 3.5 K/mcL (4.5-11.0)
--- NOTE | 2018-09-16 06:54 | XRay Report ---
CLINICAL INFORMATION: FOLLOW -UP OF SMALL BOWEL OBSTRUCTION COMPARISON: None. FINDINGS: Barium, administered yesterday, is now seen throughout the colon which is normal in caliber. There is no residual barium in the small bowel which remains normal caliber. No free air or soft tissue mass. IMPRESSION: Normal - no evidence of recurrent small bowel obstruction Interpreted and Authenticated by: José Bradford 09/16/18
[2018-09-16 06:55] LABS: ALT/SGPT 14 U/l (0-40); AST/SGOT 22 U/l (0-37); Albumin 3.1 gm/dL (3.2-5.2); Albumin/Globulin Ratio 1.6 (1.0-2.3); Alkaline Phosphatase 63 U/L (39-117); Bilirubin,Direct < 0.2 mg/dL (0.0-0.3); Bilirubin,Total 0.4 mg/dL (0.0-1.0); Blood Urea Nitrogen 5 mg/dl (8-23); Calcium 7.6 mg/dl (8.6-10.4); Carbon Dioxide 23 mmol/L (22-30); Chloride 102 mmol/L (96-108); Globulin 1.9 gm/dL (2.2-3.7); Glomerular Filtration Rate 97; Glucose 93 mg/dL (70-105); Lactate Dehydrogenase 144 U/L (94-250); Magnesium 1.6 mg/dL (1.6-2.5); Phosphorous 3.4 mg/dL (2.7-4.5); Potassium 3.1 mmol/L (3.3-5.1); Sodium 136 mmol/L (133-145); Triglycerides 61 mg/dl (<150); Uric Acid 3.7 mg/dL (2.5-8.0)
[2018-09-16] MEDS ORDERED: LEVOTHYROXINE SODIUM 112 MCG TABLET PO SCH (07:30)
[2018-09-16] MEDS ORDERED: 0.9 % SODIUM CHLORIDE 1,000 ML IV SCH (07:45)
[2018-09-16] MEDS ORDERED: BUTALB/ACETAMINOPHEN/CAFFEINE 1 TABLET PO PRN (08:14)
[2018-09-16] MEDS ORDERED: rOPINIRole 1 MG TABLET PO SCH (09:00)
[2018-09-16] MEDS ORDERED: POTASSIUM CHLORIDE 40 MEQ in DEXTROSE 5% IN WATER 500 ML IV ONE (09:00)
[2018-09-16] MEDS ORDERED: PARoxetine 20 MG TABLET PO SCH (09:00)
[2018-09-16] MEDS ORDERED: LISINOPRIL 10 MG TABLET PO SCH (09:00)
[2018-09-16] MEDS: LORazepam 1 MG TABLET PO SCH (09:01)
[2018-09-16] MEDS: GABAPENTIN 300 MG CAPSULE PO SCH ×2 (09:01→14:00)
--- NOTE | 2018-09-16 15:54 | Discharge Summary ---
Providers - Providers Patient information: Note initiated : 09/16/18 at 3:51 pm Service Date, if different from initiated Date: [] Patient: Fernanda Olmstead 63 y/o F admitted on 09/15/18 for constipation with nausea and vomit. Chief Complaint: [] Date of admission: 09/15/18 Discharge date: 09/16/18 Attending physician: Adarsh Higginbotham Hospitalization Hospital course: 63-year-old female admitted with possible small bowel obstruction. The patient states that she has a history of progressive constipation. She did take mag citrate without improvement. She developed nausea with increasing pain. She acuna d discomfort with food or liquids. On the evening prior to admission she developed worsening nausea and vomiting with pain in the right lower quadrant. She was evaluated in the emergency room and was noted to have partial intestinal obstruction with severe constipation. The patient was admitted and started on small bowel follow-through. The contrast transit through the small bowel into the colon was one hour, ruling out significant obstruction. She had multiple large bowel movements thereafter and her abdominal discomfort improved. Her diet was advanced without difficulty. She has minimal discomfort at this time and is tolerating a diet. She is discharged home in stable satisfactory condition. Discharge diagnosis: slow transit constipation Secondary discharge diagnosis: Nausea and vomiting related to constipation Reason for admission: abdominal pain, nausea, vomiting Procedures: None Pertinent studies/significant findings: CT of abdomen and pelvis with contrast Single-contrast small bowel follow-through Complications: None Exam Temp Pulse Resp BP Pulse Ox 98.0 F 60 18 104/66 99 09/16/18 12:00 09/16/18 12:00 09/16/18 12:00 09/16/18 12:00 09/16/18 12:00 - General physical appearance well developed, well nourished, no distress - Eyes PERRL, normal ocular movement - ENT normal pinna, normal nares, normal mucosa, no hearing loss, no congestion - Head Head exam IM: Present: atraumatic, normocephalic - Neck no masses, no bruits, trachea midline, no lymphadenopathy, no venous distension - Cardiovascular Cardiovascular exam IM: Present: normal rate and rhythm - Respiratory normal expansion, normal respiratory effort, clear to percussion, clear to auscultation - Abdomen Abdomen: Present: soft, non tender, bowel sounds Hernia: Present: none - Genitourinary Present: normal external genitalia - Integumentary Present: no rash, no growths, no abnormal pigmentation - Neurologic Present: normal coordination, normal sensation - Musculoskeletal Present: normal gait, normal posture - Psychiatric Present: oriented to time, oriented to person, oriented to place, speech is normal, memory intact Discharge Plan - Patient/Caregiver Discharge Instructions Activity: increase activity as tolerated Diet: Regular Diet Additional Instructions: Take MiraLAX 17 g in 8 ounces of liquid 2-3 times daily as needed for constipation. May also use . Milk of Magnesia if needed - Follow up Plan Disposition: Home, Self-Care Prognosis: Good Rehab Potential: Good I certify that the patient requires SNF services.: No Overall status at discharge: patient is progressing back to baseline Pending Studies Resuscitation Status Full Code Diet Regular Diet Start SatSep 16 813 Acetaminophen/Butalbital/Caffeine (Fioricet) 2 tab PO Q4HP PRN PRN Reason: Headache Last Admin: 09/16/18 09:02 Dose: 2 tab Documented by: MGARRED Gabapentin (Neurontin) 900 mg PO TID [facility] Last Admin: 09/16/18 14:00 Dose: 900 mg Documented by: Admin: 09/16/18 09:01 Dose: 900 mg Documented by: Admin: 09/15/18 20:41 Dose: 900 mg Documented by: Admin: 09/15/18 15:17 Dose: 900 mg Documented by: OLYA Sodium Chloride (Sodium Chloride 0.9%) 1,000 mls @ 75 mls/hr IV .[id number] [facility] Last Admin: 09/16/18 07:46 Dose: Not Given Documented by: MGARRED Levothyroxine Sodium (Synthroid) 112 mcg PO QAMAC [facility] Last Admin: 09/16/18 07:33 Dose: 112 mcg Documented by: MGARRED Lisinopril (Zestril) 10 mg PO DAILY [facility] Last Admin: 09/16/18 09:01 Dose: 10 mg Documented by: MGARRED Lorazepam (Ativan) 1 mg PO BIDP PRN PRN Reason: ANXIETY/SEDATION Last Admin: 09/15/18 06:11 Dose: 1 mg Documented by: NSTOVER Lorazepam (Ativan) 1 mg PO BID [facility] Last Admin: 09/16/18 09:01 Dose: 1 mg Documented by: Admin: 09/15/18 20:42 Dose: 1 mg Documented by: ROXANA Morphine Sulfate (Morphine) 2 mg IV Q2H PRN PRN Reason: Constipation Last Admin: 09/15/18 12:09 Dose: 2 mg Documented by: Admin: 09/15/18 06:05 Dose: 2 mg Documented by: ZAID Oxcarbazepine [ Trileptal] 600 Mg Tab 150 mg PO [facility] Last Admin: 09/15/18 20:57 Dose: 150 mg Documented by: ROXANA Ondansetron HCl (Zofran) 4 mg IV Q4HP PRN PRN Reason: Nausea And Vomiting Last Admin: 09/15/18 07:09 Dose: 4 mg Documented by: OLYA Paroxetine HCl (Paxil) 30 mg PO DAILY [facility] Last Admin: 09/16/18 09:02 Dose: 30 mg Documented by: KENDAL Polyethylene Glycol (Miralax) 17 gm PO Q6H [facility] Last Admin: 09/16/18 14:00 Dose: 17 gm Documented by: Admin: 09/16/18 06:49 Dose: Not Given Documented by: Admin: 09/16/18 04:23 Dose: Not Given Documented by: Admin: 09/15/18 20:50 Dose: 17 gm Documented by: Admin: 09/15/18 15:17 Dose: 17 gm Documented by: OLYA Ropinirole HCl (Requip) 1 mg PO DAILY [facility] Last Admin: 09/16/18 09:02 Dose: 1 mg Documented by: KENDAL Ropinirole HCl (Requip) 3 mg PO [facility] Last Admin: 09/15/18 20:41 Dose: 3 mg Documented by: ROXANA Shift Summary 09/16/18 05:22 Shift Summary by Wilver Asher AA&O x4; pt had 7 BMs on day shift yesterday and two moderate sized loose stools overnight; held the 2:30 Miralax (scheduled q 6 hours) as pt had so many loose stools already, abdomen was soft with hyperactive bowel sounds, and no nausea or pain had been reported. The small bowel follow through conducted yesterday did not show an obstruction. Tolerating clear liquid, CC diet; up with SBA overn ight d/t nightime medications and pt had a fall prior to admission last month. VSS on RA; will update at bedside. Initialized on 09/16/18 05:22 - END OF NOTE
== END 2018-09-16 18:11 | disposition home or self-care (01) ==
LOC: MEDSUR 23:24 → ED 23:24 → MEDSUR 09-15 04:05
PROVIDERS: ADMIT Family Medicine Adult Medicine; ATTEND Family Medicine Adult Medicine

== ENCOUNTER 2018-12-29 02:09 | Observation (INO) ==
[2018-12-29] MEDS ORDERED: IOPAMIDOL 100 ML BOTTLE IV ONE (02:10)
[2018-12-29] MEDS ORDERED: LACTATED RINGERS 1,000 ML IV ONE ×2 (02:13→06:19)
[2018-12-29 02:49] LABS: Basophils # (Auto) 0 K/mcL (0.0-0.3); Basophils % (Auto) 0.4 % (0.0-2.0); Eosinophils # (Auto) 0 K/mcL (0.0-0.7); Eosinophils % (Auto) 0.7 % (0.0-7.0); Granulocytes % (Auto) 83.3 % (38.0-78.0); Hematocrit 38.3 % (36.0-48.0); Hemoglobin 12.8 g/dL (12.0-15.0); Lymphocytes # (Auto) 0.8 K/mcL (1.5-4.8); Lymphocytes % (Auto) 10.5 % (15.5-49.0); Mean Cell Volume 90.6 fL (80.0-100.0); Mean Corpuscular HGB Conc 33.3 g/dL (31.0-36.0); Mean Platelet Volume 7.4 fL (7.4-10.4); Monocytes # (Auto) 0.4 K/mcL (0.1-0.9); Monocytes % (Auto) 5.1 % (1.0-12.0); Platelet Count 277 K/mcL (140-440); RBC 4.22 M/mcL (4.00-5.20); Red Cell Distribution Width 13.6 % (11.5-14.5); WBC 7.4 K/mcL (4.5-11.0)
[2018-12-29] MEDS ORDERED: METOCLOPRAMIDE 10 MG/2 ML VIAL IV ONE (03:02)
[2018-12-29 03:08] LABS: ALT/SGPT 14 U/l (0-40); AST/SGOT 27 U/l (0-37); Albumin 4.3 gm/dL (3.2-5.2); Albumin/Globulin Ratio 1.7 (1.0-2.3); Alkaline Phosphatase 94 U/L (39-117); Bilirubin,Total 0.5 mg/dL (0.0-1.0); Blood Urea Nitrogen 7 mg/dl (8-23); Carbon Dioxide 24 mmol/L (22-30); Chloride 93 mmol/L (96-108); Globulin 2.6 gm/dL (2.2-3.7); Glomerular Filtration Rate 92; Glucose 105 mg/dL (70-105)
[2018-12-29] MEDS ORDERED: LIDOCAINE JEL 2% 1 TUBE 5GM TOPICAL ONE ×2 (04:53→05:34)
[2018-12-29 05:29] LABS: Appearance,Urine CLEAR; Bilirubin,Urine NEG (NEG); Color,Urine STRAW; Glucose,Urine (UA) NEGATIVE (NEG); Ketones,Urine 20 mg/dL (NEG); Leukocyte Esterase,Urine NEG /uL (NEG); Nitrate,Urine NEG (NEG); Protein,Urine NEG (NEG); Specific Gravity,Urine 1.057 (1.000-1.035); Urine Blood NEG mg/dL (<0.03); Urobilinogen,Urine NEG (NEG)
--- NOTE | 2018-12-29 07:19 | Emergency Department Note ---
Abdominal Pain HPI - General Chief Complaint: Abdominal Pain Stated Complaint: report of abd pain Time Seen by Provider: 12/29/18 02:12 Source: patient Mode of arrival: EMS Limitations: no limitations - History of Present Illness HPI Narrative: This patient returns to the emergency room now complaining of abdominal pain again. She had a complete evaluation for abdominal pain except she did not have a CT scan about a week ago with Dr. Parrish. I saw a couple of nights ago with chest pain. This is her 14th admission to the ER this year for painful sy ndromes. Her abdominal pain now is in the center of the abdomen associated with some nausea and vomiting. - Related Data Home Medications Medication Instructions Recorded Confirmed Aspirin [Adult Low Dose Aspirin EC] 81 mg PO DAILY 12/13/16 09/15/18 Esomeprazole Magnesium [Nexium] 20 mg PO DAILY 12/13/16 09/15/18 Levothyroxine Sodium [Synthroid] 112 mcg PO DAILY 12/13/16 09/15/18 rOPINIRole [Requip] 1 mg PO DAILY 12/13/16 09/15/18 Albuterol Sulfate 2 puff INH Q4HP PRN 07/15/18 09/15/18 Budesonide/Formoterol Fumarate 2 puff INH BID 07/15/18 09/15/18 [Symbicort 80-4.5 Mcg Inhaler] Gabapentin [Neurontin] 900 mg PO TID 07/15/18 09/15/18 OXcarbazepine [Trileptal] 150 mg PO HS 07/15/18 09/15/18 rOPINIRole HCL [Requip] 3 mg PO HS 09/15/18 09/15/18 clonazePAM [KlonoPIN] 1 mg PO BID 11/22/18 11/22/18 Previous Rx's Medication Instructions Recorded Clopidogrel Bisulfate [Plavix] 75 mg PO DAILY #30 tab 06/01/16 Ondansetron [Zofran ODT] 4 mg SL Q4-6HP PRN #10 tab 01/25/18 PARoxetine HCL [Paroxetine HCl] 30 mg PO DAILY #10 tab 11/22/18 Allergies Allergy/AdvReac Type Severity Reaction Status Date / Time lamotrigine [From Lamictal] Allergy Severe Anaphylaxis Verified 12/29/18 02:18 pork derived (porcine) Allergy Severe Anaphylaxis Verified 12/29/18 02:18 rice Allergy Intermediate Swelling Verified 12/29/18 02:18 Gatifloxacin [From Tequin] Allergy Mild Rash Verified 12/29/18 02:18 levofloxacin [From Levaquin] Allergy Mild Rash Verified 12/29/18 02:18 Penicillins Allergy Mild Rash Verified 12/29/18 02:18 Sulfa (Sulfonamide Allergy Mild Rash Verified 12/29/18 02:18 Antibiotics) isotretinoin [From Accutane] AdvReac Mild Other Verified 12/29/18 02:18 prednisone AdvReac Mild Anxiety Verified 12/29/18 02:18 nitrofurantoin AdvReac Unknown Unknown Verified 12/29/18 02:18 [From Macrobid] Review of Systems All systems ED: reviewed and negative except as stated. Abdominal Pain PMH - Past Medical History Medical history: Reports: cancer (basal cell. ), CHF, COPD, hypertension, peripheral artery disease, thyroid disease, TIA, other (PUD. AAA. Atherosclerosis. Gastroparesis. Restless leg syndrome. Chronic anticoagula tion - Plavix. NO INFLAM. BOWEl DISEASE. NO PANCREATITIS.). Denies: CAD (coronary artery disease), CVA, DM, hyperlipidemia, myocardial infarction, renal disease Psychiatric history: Reports: anxiety, depression, PTSD POLICY ANALYST history: Reports: non-contributory Family history: Reports: no significant family history - Social History Smoking status: Current every day smoker Alcohol use: Reports: Occasionally Drug use: Reports: none. Denies: marijuana Physical Exam Limitations: no limitations General appearance: alert Head: atraumatic Eye: Present: normal appearance ENT: Present: normal exam Neck: Present: normal inspection Chest: Present: normal inspection Respiratory: Present: normal lung sounds bilaterally Cardiovascular: Present: regular rate, normal rhythm, normal heart sounds Abdominal: Present: soft, tenderness. Absent: distention, guarding, rebound, ri gidity Abdominal tenderness: Present: diffuse, mild Neurological: Present: alert Psychiatric: Present: normal affect Skin: Present: warm, dry Course Vital Signs Temperature 98.4 F 12/29/18 02:11 Pulse Rate 66 12/29/18 02:11 Respiratory Rate 16 12/29/18 02:11 Blood Pressure 176/100 12/29/18 02:11 Pulse Oximetry (%) 97 12/29/18 02:11 Temperature 98.4 F 12/29/18 02:11 Pulse Rate 66 12/29/18 06:30 Respiratory Rate 16 12/29/18 02:11 Blood Pressure 140/91 12/29/18 06:30 Pulse Oximetry (%) 91 12/29/18 06:30 Abdominal Pain - MDM Narrative Medical decision making narrative: She had not had an abdominal CT scan since last November so I went ahead and did another one tonight which shows suggestion of an early partial small bowel obstruction. Discussed this with Dr. Higginbotham the surgeon and she will be admitted to the hospital. NG tube was placed. - Lab Data Lab results reviewed: Yes I reviewed the patient's lab results. Result diagrams: 12/29/18 02:20 12/29/18 02:20 Lab Results 12/29/18 12/29/18 12/29/18 Range/Units 02:20 02:20 04:50 WBC 7.4 (4.5-11.0) K/mcL RBC 4.22 (4.00-5.20) M/mcL Hgb 12.8 (12.0-15.0) g/dL Hct 38.3 (36.0-48.0) % MCV 90.6 (80.0-100.0) fL MCH 30.2 (26.0-34.0) pg MCHC 33.3 (31.0-36.0) g/dL RDW 13.6 (11.5-14.5) % Plt Count 277 (140-440) K/mcL MPV 7.4 (7.4-10.4) fL Gran % 83.3 H (38.0-78.0) % Lymph % (Auto) 10.5 L (15.5-49.0) % [place] % (Auto) 5.1 (1.0-12.0) % Eos % (Auto) 0.7 (0.0-7.0) % Baso % (Auto) 0.4 (0.0-2.0) % Gran # 6.2 (1.8-8.0) K/mcL Lymph # (Auto) 0.8 L (1.5-4.8) K/mcL [place] # (Auto) 0.4 (0.1-0.9) K/mcL Eos # (Auto) 0 (0.0-0.7) K/mcL Baso # (Auto) 0 (0.0-0.3) K/mcL Sodium 128 L (133-145) mmol/L Potassium 3.8 (3.3-5.1) mmol/L Chloride 93 L (96-108) mmol/L Carbon Dioxide 24 (22-30) mmol/L Anion Gap 11.0 (8-16) BUN 7 L (8-23) mg/dl Creatinine 0.7 (0.6-1.1) mg/dl GFR Calculation 92 Glucose 105 (70-105) mg/dL Calcium 9.0 (8.6-10.4) mg/dl Total Bilirubin 0.5 (0.0-1.0) mg/dL AST 27 (0-37) U/l ALT 14 (0-40) U/l Alkaline Phosphatase 94 (39-117) U/L Total Protein 6.9 (5.9-8.4) gm/dL Albumin 4.3 (3.2-5.2) gm/dL Globulin 2.6 (2.2-3.7) gm/dL Albumin/Globulin Ratio 1.7 (1.0-2.3) Lipase 20 (7-60) U/L Urine Color Straw Urine Appearance Clear Urine pH 7.0 (5.0-9.0) Ur Specific [place] 1.057 H (1.000-1.035) Urine Protein Neg (NEG) mg/dL Urine Glucose (UA) Negative (NEG) mg/dL Urine Ketones 20 A (NEG) mg/dL Urine Occult Blood Neg (<0.03) mg/dL Urine Nitrate Neg (NEG) Urine Bilirubin Neg (NEG) mg/dL Urine Urobilinogen Neg (NEG) mg/dL Ur Leukocyte Esterase Neg (NEG) /uL - Radiology Data Radiology results reviewed: Yes I reviewed the patient's radiology results. Disposition Pt seen by PERSONNEL TRAINING OFFICER/PA only: No Clinical Impression: Small bowel obstruction Disposition: Xfer As Outpt/Obs ([facility]) Condition: Fair
--- NOTE | 2018-12-29 08:12 | XRay Report ---
CLINICAL INFORMATION: ng tube placement COMPARISON: 12/20/2018 FINDINGS: NG tube tip is in satisfactory position the proximal gastric body. Stool gas pattern is grossly normal, however only the upper abdomen is included on the film. There is no free air or soft tissue mass IMPRESSION: NG tube in the proximal gastric body. Interpreted and Authenticated by: José Bradford 12/29/18
[2018-12-29] MEDS: HYDROmorphone 2 MG/ML VIAL IV PRN ×2 (08:50→13:48)
[2018-12-29] MEDS: METOCLOPRAMIDE 10 MG/2 ML VIAL IV SCH ×3 (12:50→23:24)
[2018-12-29] MEDS: 0.9 % SODIUM CHLORIDE 1,000 ML IV SCH ×2 (13:48→23:24)
--- NOTE | 2018-12-29 13:50 | Cat Scan Report ---
CLINICAL INFORMATION: Abdominal pain COMPARISON: 11/12/[address] TECHNIQUE: Following enteric contrast, 80 cc of Isovue-370 were injected intravenously, and 60 seconds later, 0.625 mm helical slices were obtained from the mid heart through the subtrochanteric regions. Following reconstruction, 2.5 mm sagittal, coronal and axial reformatted images were processed and reviewed at bone, lung and soft tissue windows. Five minutes later, 0.625 mm helical slices were obtained from the mid heart through the kidneys and viewed at soft tissue windows.The exam was performed using radiation dose optimization techniques including, but not limited to, automated exposure control, adjustment of the mA and/or kV according to patient size and use of iterative reconstruction technique. FINDINGS: Lung bases show no abnormality - no effusion. The visualized heart is grossly normal. Small hiatal hernia again seen Abdominal images show mild fatty change within the liver, but no focal hepatic lesions. The gallbladder is surgically absent. Common bile duct is normal caliber: 6 mm. The pancreas, both kidneys, adrenal glands, spleen and aorta are unremarkable. The stomach, duodenum and multiple loops of proximal jejunum are moderately dilated to a transition point in the mid jejunum located in the anterior central mesenteric cavity (coronal image 43, axial image 88 and sagittal image 92). The distal small bowel and colon are relatively decompressed. Small amount of free fluid noted in the deep true pelvis and paracolic gutters. There is no adenopathy or free air. Pelvic images show urinary bladder is unremarkable. The uterus is quite diminutive but grossly normal. The region of the ovaries are unremarkable.. Bone windows show only degenerative changes in the lumbar spine IMPRESSION: 1. Partial mid jejunal obstruction due to adhesions or stricture. Small amount of ascites suggests early third spacing. No evidence of perforation. 2. Small hiatal hernia 3. The small fluid collection, previously seen in the left gluteal subcutaneous fat, on CT nearly 2 months ago, has resolved Interpreted and Authenticated by: José Bradford 12/29/18
--- NOTE | 2018-12-29 15:48 | XRay Report ---
CLINICAL INFORMATION: Follow-up proximal mid jejunal obstruction due to adhesion or stricture TECHNIQUE: Following a cst film of the abdomen and pelvis, water soluble enteric contrast was administered and serial abdominal imaging was obtained over one hour and 15 minutes Spot fluoroscopy images were then obtained by the radiologist of the small bowel COMPARISON: None. FINDINGS: Stomach, duodenum and jejunum are mildly dilated to the level of the known stricture in the mid jejunum. There is slight impedance of enteric contrast passing through this region, but the distal small bowel and colon were filled and appear normal IMPRESSION: Mild partial mid jejunal obstruction due to adhesion or stricture. Small bowel transit time one hour 15 minutes Interpreted and Authenticated by: José Bradford 12/29/18
--- NOTE | 2018-12-29 17:18 | General Surg History&Physical ---
History of Present Illness Patient information: Note initiated : 12/29/18 at 5:17 pm Service Date, if different from initiated Date: [] Patient: Fernanda Olmstead a 63 y/o F admitted on 12/29/18 for report of abd pain. Chief Complaint: [] HPI: Ms. Olmstead is a 63 year old F admitted with abdominal pain nausea and vomiting. The patient has greater than a 2 day history of midabdominal pain with abdominal bloating nausea and vomiting. She has had similar episodes in the past. She was seen in the emergency room and evaluation was compatible with partial proximal intestinal obstruction. She was admitted started on nasogastric decompression. she will need to have small bowel follow-through for better delineation of the degree of obstruction. It is anticipated that she should have decompression of her bowel after the study. Review of Systems All systems PM: reviewed and no additional remarkable complaints except as stated (no complaints except as noted below) - Constitutional fatigue, headache(s), weakness, weight loss - EENT Nose, mouth and throat: abnormal hearing - Gastrointestinal abdominal pain, bloating, change in bowel habits, cramping, heartburn, nausea, vomiting - Musculoskeletal arthralgias, muscle cramps, myalgias, stiffness - Neurological paresthesias, restless legs, tingling, no confusion, no headache(s) - Psychiatric anxiety, depression, hopelessness, mood swings Past History Past medical history: History of congestive heart failure Chronic obstructive lung disease Hypertension Peripheral vascular disease History of TIAs Abdominal aortic aneurysm repair Gastroparesis Restless leg syndrome Anxiety with depression Chronic constipation Past surgical history: Laparoscopic cholecystectomy Aortic endarterectomy with tube grafting March 2018 Left breast lumpectomy Past family history: Mother age 89 due to congestive heart failure Father age 62 due to complications of coronary artery disease and stroke Past social history: Cigarette use 1 pack per day since age 50 Occasional beer Denies drug use Single No children Medications and Allergies Home Medications Medication Instructions Recorded Confirmed Type Clopidogrel Bisulfate [Plavix] 75 mg PO DAILY #30 tab 06/01/16 12/29/18 Rx Aspirin [Adult Low Dose Aspirin EC] 81 mg PO DAILY 12/13/16 12/29/18 History Esomeprazole Magnesium [Nexium] 20 mg PO DAILY 12/13/16 12/29/18 History Levothyroxine Sodium [Synthroid] 112 mcg PO DAILY 12/13/16 12/29/18 History rOPINIRole [Requip] 1 mg PO DAILY 12/13/16 12/29/18 History Ondansetron [Zofran ODT] 4 mg SL Q4-6HP PRN #10 tab 01/25/18 12/29/18 Rx Albuterol Sulfate 2 puff INH Q4HP PRN 07/15/18 12/29/18 History Budesonide/Formoterol Fumarate 2 puff INH BID 07/15/18 12/29/18 History [Symbicort 80-4.5 Mcg Inhaler] Gabapentin [Neurontin] 900 mg PO TID 07/15/18 12/29/18 History OXcarbazepine [Trileptal] 150 mg PO HS 07/15/18 12/29/18 History rOPINIRole HCL [Requip] 3 mg PO HS 09/15/18 12/29/18 History PARoxetine HCL [Paroxetine HCl] 30 mg PO DAILY #10 tab 11/22/18 12/29/18 Rx clonazePAM [KlonoPIN] 1 mg PO BID 11/22/18 12/29/18 History Allergies Allergy/AdvReac Type Severity Reaction Status Date / Time lamotrigine [From Lamictal] Allergy Severe Anaphylaxis Verified 12/29/18 02:18 pork derived (porcine) Allergy Severe Anaphylaxis Verified 12/29/18 02:18 rice Allergy Intermediate Swelling Verified 12/29/18 08:04 Penicillins Allergy Mild Rash Verified 12/29/18 02:18 Sulfa (Sulfonamide Allergy Mild Rash Verified 12/29/18 02:18 Antibiotics) isotretinoin [From Accutane] AdvReac Mild Other Verified 12/29/18 02:18 prednisone AdvReac Mild Anxiety Verified 12/29/18 02:18 Quinolones AdvReac Mild Rash Verified 12/29/18 08:03 nitrofurantoin AdvReac Unknown Unknown Verified 12/29/18 02:18 [From Macrobid] Exam Temp Pulse Resp BP Pulse Ox 97.8 F 64 18 95/60 92 12/29/18 16:00 12/29/18 16:00 12/29/18 16:00 12/29/18 16:00 12/29/18 16:00 - General physical appearance well developed, well nourished, no distress - Eyes PERRL, normal ocular movement - ENT normal pinna, normal nares, normal mucosa, no hearing loss, no congestion - Head Head exam IM: Present: atraumatic, normocephalic - Neck no masses, no bruits, trachea midline, no lymphadenopathy, no venous distension - Cardiovascular Cardiovascular exam IM: Present: normal rate and rhythm - Respiratory normal expansion, normal respiratory effort, clear to percussion, clear to auscultation - Abdomen Abdomen: Present: soft, tender (mild mid abdominal tenderness; good active bowel sounds; no mass), bowel sounds Hernia: Present: none - Genitourinary Present: normal external genitalia - Rectum Rectum: Present: normal sphincter tone, no hemorrhoids, no tenderness, no masses, no bleeding - Integumentary Present: no rash, no growths, no abnormal pigmentation - Neurologic Present: normal coordination, normal sensation - Musculoskeletal Present: normal gait, normal posture - Psychiatric Present: oriented to time, oriented to person, oriented to place, speech is normal, memory intact Assessment and Plan (1) Small bowel obstruction, partial Nasogastric decompression will be continued until patient has small bowel follow-through. If the small bowel follow-through successfully decompresses nasogastric tube will be decompressed she will be given MiraLAX to further empty her bowel. I do not anticipate that she will need to have operative treatment. Status: Acute (2) Anxiety disorder Will start home medication when patient can take by mouth Status: Chronic (3) COPD (chronic obstructive pulmonary disease) Will use supplemental oxygen as needed Status: Chronic Qualifiers: COPD type: chronic bronchitis Chronic bronchitis type: unspecified Qualified Code(s): J42 - Unspecified chronic bronchitis (4) History of TIA (transient ischemic attack) Status: Chronic (5) Hypertension, essential Status: Chronic (6) PTSD (post-traumatic stress disorder) Status: Chronic (7) Peripheral vascular disease Status: Chronic (8) RLS (restless legs syndrome) Status: Chronic
[2018-12-29] MEDS: OXCARBAZEPINE 150 MG PO SCH (20:54)
[2018-12-29] MEDS: rOPINIRole 1 MG TABLET PO SCH (20:55)
[2018-12-29] MEDS: GABAPENTIN 300 MG CAPSULE PO SCH (20:56)
[2018-12-29] MEDS: clonazePAM 1 MG TABLET PO SCH (20:57)
[2018-12-30] MEDS: METOCLOPRAMIDE 10 MG/2 ML VIAL IV SCH ×3 (06:40→17:17)
[2018-12-30 06:41] LABS: Basophils # (Auto) 0 K/mcL (0.0-0.3); Basophils % (Auto) 0.7 % (0.0-2.0); Eosinophils # (Auto) 0.1 K/mcL (0.0-0.7); Eosinophils % (Auto) 1.8 % (0.0-7.0); Hematocrit 34.3 % (36.0-48.0); Hemoglobin 11.4 g/dL (12.0-15.0); Lymphocytes # (Auto) 1.1 K/mcL (1.5-4.8); Lymphocytes % (Auto) 32.1 % (15.5-49.0); Mean Cell Volume 91.7 fL (80.0-100.0); Mean Corpuscular HGB Conc 33.4 g/dL (31.0-36.0); Mean Platelet Volume 7.3 fL (7.4-10.4); Monocytes # (Auto) 0.5 K/mcL (0.1-0.9); Monocytes % (Auto) 15.4 % (1.0-12.0); Platelet Count 237 K/mcL (140-440); RBC 3.74 M/mcL (4.00-5.20); Red Cell Distribution Width 13.6 % (11.5-14.5); WBC 3.6 K/mcL (4.5-11.0)
[2018-12-30] MEDS: LEVOTHYROXINE SODIUM 112 MCG TABLET PO SCH (07:10)
[2018-12-30 07:36] LABS: ALT/SGPT 11 U/l (0-40); AST/SGOT 21 U/l (0-37); Albumin 3.6 gm/dL (3.2-5.2); Albumin/Globulin Ratio 1.6 (1.0-2.3); Alkaline Phosphatase 69 U/L (39-117); Bilirubin,Direct < 0.2 mg/dL (0.0-0.3); Bilirubin,Total 0.4 mg/dL (0.0-1.0); Blood Urea Nitrogen 7 mg/dl (8-23); Calcium 8.2 mg/dl (8.6-10.4); Carbon Dioxide 24 mmol/L (22-30); Chloride 104 mmol/L (96-108); Globulin 2.2 gm/dL (2.2-3.7); Glomerular Filtration Rate 97; Glucose 72 mg/dL (70-105); Lactate Dehydrogenase 180 U/L (94-250); Phosphorous 3.2 mg/dL (2.7-4.5); Triglycerides 50 mg/dl (<150); Uric Acid 3.6 mg/dL (2.5-8.0)
--- NOTE | 2018-12-30 08:16 | XRay Report ---
CLINICAL INFORMATION: FOLLOW -UP OF SMALL BOWEL OBSTRUCTION COMPARISON: Small bowel follow-through 12/29/2018 FINDINGS: Stomach and small bowel are decompressed. All of the contrast, administered for small bowel follow-through yesterday, is within a appearing large bowel. No free air, soft tissue mass or organomegaly. NG tube has been removed. IMPRESSION: Normal exam - NG tube is now about Interpreted and Authenticated by: José Bradford 12/30/18
[2018-12-30] MEDS ORDERED: POLYETHYLENE GLYCOL 3350 17 GM PACKET PO SCH (09:00)
[2018-12-30] MEDS: CLOPIDOGREL 75 MG TABLET PO SCH (09:11)
[2018-12-30] MEDS: clonazePAM 1 MG TABLET PO SCH ×2 (09:12→20:40)
[2018-12-30] MEDS: GABAPENTIN 300 MG CAPSULE PO SCH ×3 (09:12→20:40)
[2018-12-30] MEDS: PARoxetine 20 MG TABLET PO SCH (09:14)
[2018-12-30] MEDS: rOPINIRole 1 MG TABLET PO SCH ×2 (09:16→20:40)
[2018-12-30] MEDS: NICOTINE 21 MG PATCH TOPICAL SCH (09:24)
[2018-12-30] MEDS: 0.9 % SODIUM CHLORIDE 1,000 ML IV SCH ×3 (11:30→19:12)
--- NOTE | 2018-12-30 12:30 | General Surgery Progress Note ---
Subjective Patient reports: feels better, pain is less, tolerating a regular diet, flatus, bowel movement, afebrile Narrative: Note initiated : 12/30/18 at 12:28 pm Service Date, if different from initiated Date: [] Patient: Fernanda Olmstead 63 y/o F admitted on 12/29/18 for report of abd pain. Chief Complaint: [Patient is doing well. Her small bowel follow-through showed transit of contrast into the colon at 90 minutes. She has had 6 bowel movements since the procedure and feels well. She has tolerated clear liquids and is now eating a regular diet without difficulty. She denies nausea. White count 3.6, hemoglobin 11.4, hematocrit 34.3, potassium 3.5, BUN 12, creatinine 0.7.] Objective Temp Pulse Resp BP Pulse Ox 96.7 F L 53 L 14 149/86 100 12/30/18 11:34 12/30/18 11:34 12/30/18 11:34 12/30/18 11:34 12/30/18 11:34 - Additional Data Intake & Output - Last 24 hours: Intake & Output 12/28/18 12/29/18 12/30/18 12/31/18 05:59 05:59 05:59 05:59 Intake Total 1000 1200 840 Output Total 2000 Balance 1000 -800 840 Weight 135 lb 152 lb - General physical appearance well developed, well nourished, no distress - Eyes PERRL, normal ocular movement - ENT normal pinna, normal nares, normal mucosa, no hearing loss, no congestion - Neck no masses, no bruits, trachea midline, no lymphadenopathy, no venous distension - Respiratory normal expansion, normal respiratory effort, clear to auscultation - Cardiovascular Cardiovascular exam: Present: normal rate and rhythm, RRR, +S1, +S2. Absent: JVD, tachycardia - Abdomen soft, non tender (no tenderness or guarding), bowel sounds (hyperactive bowel sounds), surgical scars (none), masses (none) - Integumentary no rash, no growths, no abnormal pigmentation - Neurologic normal coordination, normal sensation - Musculoskeletal normal gait, normal posture - Psychiatric oriented to time, oriented to person, oriented to place, speech is normal, memory intact - Labs 12/30/18 04:13 12/30/18 04:13 Diabetes panel 12/30/18 Range/Units 04:13 Sodium 140 (133-145) mmol/L Potassium 3.5 (3.3-5.1) mmol/L Chloride 104 (96-108) mmol/L Carbon Dioxide 24 (22-30) mmol/L BUN 7 L (8-23) mg/dl Creatinine 0.6 (0.6-1.1) mg/dl Glucose 72 (70-105) mg/dL Calcium 8.2 L (8.6-10.4) mg/dl AST 21 (0-37) U/l ALT 11 (0-40) U/l Alkaline Phosphatase 69 (39-117) U/L Total Protein 5.8 L (5.9-8.4) gm/dL Albumin 3.6 (3.2-5.2) gm/dL Triglycerides 50 (<150) mg/dl Calcium panel 12/30/18 Range/Units 04:13 Calcium 8.2 L (8.6-10.4) mg/dl Phosphorus 3.2 (2.7-4.5) mg/dL Albumin 3.6 (3.2-5.2) gm/dL Pituitary panel 12/30/18 Range/Units 04:13 Sodium 140 (133-145) mmol/L Potassium 3.5 (3.3-5.1) mmol/L Chloride 104 (96-108) mmol/L Carbon Dioxide 24 (22-30) mmol/L BUN 7 L (8-23) mg/dl Creatinine 0.6 (0.6-1.1) mg/dl Glucose 72 (70-105) mg/dL Calcium 8.2 L (8.6-10.4) mg/dl Adrenal panel 12/30/18 Range/Units 04:13 Sodium 140 (133-145) mmol/L Potassium 3.5 (3.3-5.1) mmol/L Chloride 104 (96-108) mmol/L Carbon Dioxide 24 (22-30) mmol/L BUN 7 L (8-23) mg/dl Creatinine 0.6 (0.6-1.1) mg/dl Glucose 72 (70-105) mg/dL Calcium 8.2 L (8.6-10.4) mg/dl Total Bilirubin 0.4 (0.0-1.0) mg/dL AST 21 (0-37) U/l ALT 11 (0-40) U/l Alkaline Phosphatase 69 (39-117) U/L Total Protein 5.8 L (5.9-8.4) gm/dL Albumin 3.6 (3.2-5.2) gm/dL Assessment and Plan (1) Small bowel obstruction, partial Status: Acute Assessment and plan: Patient is clinically improved and is stable for discharge later today Current Visit: Yes (2) Hypertension, essential Status: Chronic Assessment and plan: Will restart home medications Current Visit: No (3) COPD (chronic obstructive pulmonary disease) Status: Chronic Current Visit: No (4) RLS (restless legs syndrome) Status: Chronic Current Visit: No (5) PTSD (post-traumatic stress disorder) Status: Chronic Current Visit: No - Time Spent With Patient Total time spent is greater than 50% in coordination of care (as documented) at patient's floor/unit and/or counseling patient:
[2018-12-30] MEDS: POLYETHYLENE GLYCOL 3350 17 GM PACKET PO SCH ×3 (14:45→22:26)
[2018-12-30] MEDS: oxyCODONE HCL 5 MG TABLET PO PRN ×2 (15:37→20:47)
[2018-12-30] MEDS: OXCARBAZEPINE 150 MG PO SCH (20:52)
[2018-12-31] MEDS: METOCLOPRAMIDE 10 MG/2 ML VIAL IV SCH ×3 (00:14→11:50)
[2018-12-31] MEDS: oxyCODONE HCL 5 MG TABLET PO PRN ×3 (00:17→10:05)
[2018-12-31] MEDS: 0.9 % SODIUM CHLORIDE 1,000 ML IV SCH ×2 (04:44→12:42)
[2018-12-31 05:46] LABS: Basophils # (Auto) 0 K/mcL (0.0-0.3); Basophils % (Auto) 0.8 % (0.0-2.0); Eosinophils # (Auto) 0.2 K/mcL (0.0-0.7); Eosinophils % (Auto) 4.8 % (0.0-7.0); Hematocrit 34.2 % (36.0-48.0); Hemoglobin 11.3 g/dL (12.0-15.0); Lymphocytes # (Auto) 1.6 K/mcL (1.5-4.8); Lymphocytes % (Auto) 35.3 % (15.5-49.0); Mean Cell Volume 92.9 fL (80.0-100.0); Mean Platelet Volume 7.3 fL (7.4-10.4); Monocytes # (Auto) 0.5 K/mcL (0.1-0.9); Monocytes % (Auto) 11.1 % (1.0-12.0); Platelet Count 221 K/mcL (140-440); RBC 3.68 M/mcL (4.00-5.20); Red Cell Distribution Width 13.8 % (11.5-14.5); WBC 4.5 K/mcL (4.5-11.0)
[2018-12-31 06:15] LABS: ALT/SGPT 9 U/l (0-40); AST/SGOT 20 U/l (0-37); Albumin 3.2 gm/dL (3.2-5.2); Albumin/Globulin Ratio 1.3 (1.0-2.3); Alkaline Phosphatase 75 U/L (39-117); Bilirubin,Direct < 0.2 mg/dL (0.0-0.3); Bilirubin,Total 0.3 mg/dL (0.0-1.0); Blood Urea Nitrogen 4 mg/dl (8-23); Calcium 7.6 mg/dl (8.6-10.4); Carbon Dioxide 23 mmol/L (22-30); Chloride 102 mmol/L (96-108); Globulin 2.4 gm/dL (2.2-3.7); Glomerular Filtration Rate 97; Glucose 90 mg/dL (70-105); Lactate Dehydrogenase 194 U/L (94-250); Phosphorous 2.8 mg/dL (2.7-4.5); Triglycerides 64 mg/dl (<150)
[2018-12-31] MEDS: LEVOTHYROXINE SODIUM 112 MCG TABLET PO SCH (07:24)
--- NOTE | 2018-12-31 08:05 | XRay Report ---
CLINICAL INFORMATION: FOLLOW -UP OF SMALL BOWEL OBSTRUCTION COMPARISON: 12/30/2018 FINDINGS: Most of the enteric contrast, from a small bowel follow-through two days prior, has been evacuated with minimal residual in the colon. The colon is mildly dilated. Stomach and small bowel remain normal. No free air, soft tissue mass or organomegaly IMPRESSION: Mild ileus. Interpreted and Authenticated by: José Bradford 12/31/18
[2018-12-31] MEDS: rOPINIRole 1 MG TABLET PO SCH (09:18)
[2018-12-31] MEDS: PARoxetine 20 MG TABLET PO SCH (09:18)
[2018-12-31] MEDS: clonazePAM 1 MG TABLET PO SCH (09:18)
[2018-12-31] MEDS: GABAPENTIN 300 MG CAPSULE PO SCH (09:18)
[2018-12-31] MEDS: CLOPIDOGREL 75 MG TABLET PO SCH (09:18)
[2018-12-31] MEDS: NICOTINE 21 MG PATCH TOPICAL SCH (10:07)
--- NOTE | 2018-12-31 11:30 | Discharge Summary ---
Providers - Providers Patient information: Note initiated : 12/31/18 at 11:26 am Service Date, if different from initiated Date: [] Patient: Fernadna Olmstead 63 y/o F admitted on 12/29/18 for report of abd pain. Chief Complaint: [] Date of admission: 12/29/18 Discharge date: 12/31/18 Attending physician: Adarsh Higginbotham Hospitalization Hospital Course: 63-year-old female admitted with partial small bowel obstruction. The patient also has a history of chronic constipation. She has a three-day history of aggravated abdominal discomfort with bloating nausea and vomiting. She was seen in the emergency room and evaluation suggested partial small bowel obstruction. CT confirmed this and she was admitted for nasogastric decompression. On the day after admission she underwent small bowel follow-through which showed slow transit in the proximal bowel but rapid transit from the mid gut to the colon. Total transit time was about 90 minutes . She has been advanced to a diet as tolerated well. She did have some nausea last evening but was able to eat today without problems. X-rays this morning shows total clearing of contrast from the Bowel. She is stable for discharge home Discharge diagnosis: partial proximal small bowel obstruction Secondary discharge diagnosis: Chronic obstructive lung disease Hypertension Peripheral vascular disease History of gastroparesis Anxiety with depression Posttraumatic stress disorder Reason for admission: abdominal pain nausea vomiting Procedures: None Pertinent studies/significant findings: CT of abdomen and pelvis with contrast Single contrast small bowel follow-through Complications: None Exam Temp Pulse Resp BP Pulse Ox 97.1 F 71 18 146/91 95 12/31/18 08:00 12/31/18 08:00 12/31/18 08:00 12/31/18 08:00 12/31/18 08:00 - General physical appearance well developed, well nourished, no distress - Eyes PERRL, normal ocular movement - ENT normal pinna, normal nares, normal mucosa, no hearing loss, no congestion - Head Head exam IM: Present: atraumatic, normocephalic - Neck no masses, no bruits, trachea midline, no lymphadenopathy, no venous distension - Cardiovascular Cardiovascular exam IM: Present: normal rate and rhythm - Respiratory normal expansion, normal respiratory effort, clear to percussion, clear to auscultation - Abdomen Abdomen: Present: soft, non tender (abdominal exam is totally benign; good active bowel sounds; no distention; no tenderness), bowel sounds Hernia: Present: none - Genitourinary Present: normal external genitalia - Integumentary Present: no rash, no growths, no abnormal pigmentation - Neurologic Present: normal coordination, normal sensation - Musculoskeletal Present: normal gait, normal posture - Psychiatric Present: oriented to time, oriented to person, oriented to place, speech is norm al, memory intact Discharge Plan - Patient/Caregiver Discharge Instructions Diet: Regular Diet Additional Instructions: Patient will follow-up with her primary physician and her primary GI physician. She is scheduled to have upper endoscopy and colonoscopy in 2 weeks. Prescriptions: HYDROcodone/APAP 10/325MG [Willow 10-325Mg] 1 tab PO Q4H PRN #20 tab PRN Reason: Pain Prescription Printed - Follow up Plan Follow up with: Marah,PCP [Referring] - Disposition: Home, Self-Care Prognosis: Good Rehab Potential: Good I certify that the patient requires SNF services.: No Overall status at discharge: patient is back to baseline Pending Studies Diet Regular Diet Start SatDec 30 115 Clonazepam (Klonopin) 1 mg PO BID REPLACED BY [facility] Last Admin: 12/31/18 09:18 Dose: 1 mg Documented by: Admin: 12/30/18 20:40 Dose: 1 mg Documented by: Admin: 12/30/18 09:12 Dose: 1 mg Documented by: TITO Cosigned by: LUZ Admin: 12/29/18 20:57 Dose: 1 mg Documented by: MOOKIE Clopidogrel Bisulfate (Plavix) 75 mg PO DAILY REPLACED BY [facility] Last Admin: 12/31/18 09:18 Dose: 75 mg Documented by: Admin: 12/30/18 09:11 Dose: 75 mg Documented by: TITO Cosigned by: LUZ Gabapentin (Neurontin) 900 mg PO TID REPLACED BY [facility] Last Admin: 12/31/18 09:18 Dose: 900 mg Documented by: Admin: 12/30/18 20:40 Dose: 900 mg Documented by: Admin: 12/30/18 14:45 Dose: 900 mg Documented by: [email or web address] Admin: 12/30/18 09:12 Dose: 900 mg Documented by: TITO Cosigned by: LUZ Admin: 12/29/18 20:56 Dose: 900 mg Documented by: [email or web address] Hydromorphone HCl (Dilaudid) 0.5 mg IV Q2HP PRN PRN Reason: PAIN LEVEL > 6 Last Admin: 12/29/18 13:48 Dose: 0.5 mg Documented by: [id number] Admin: 12/29/18 08:50 Dose: 0.5 mg Documented by: [id number] Sodium Chloride (Sodium Chloride 0.9%) 1,000 mls @ 100 mls/hr IV .Q10H REPLACED BY [facility] Last Admin: 12/31/18 04:44 Dose: 100 mls/hr Documented by: Infusion: 12/31/18 04:44 Dose: 100 mls/hr Documented by: Admin: 12/30/18 19:12 Dose: 100 mls/hr Documented by: Admin: 12/30/18 14:52 Dose: Not Given Documented by: [email or web address] Admin: 12/30/18 11:30 Dose: Not Given Documented by: [email or web address] Infusion: 12/30/18 09:24 Dose: 100 mls/hr Documented by: Admin: 12/29/18 23:24 Dose: 100 mls/hr Documented by: Infusion: 12/29/18 23:24 Dose: 100 mls/hr Documented by: Admin: 12/29/18 13:48 Dose: 100 mls/hr Documented by: [id number] Levothyroxine Sodium (Synthroid) 112 mcg PO ACB REPLACED BY [facility] Last Admin: 12/31/18 07:24 Dose: 112 mcg Documented by: [facility] Admin: 12/30/18 07:10 Dose: 112 mcg Documented by: [id number] Metoclopramide HCl (Reglan) 10 mg IV Q6 REPLACED BY [facility] Last Admin: 12/31/18 06:11 Dose: 10 mg Documented by: Admin: 12/31/18 00:14 Dose: 10 mg Documented by: [email or web address] Admin: 12/30/18 17:17 Dose: 10 mg Documented by: [email or web address] Admin: 12/30/18 12:01 Dose: 10 mg Documented by: [email or web address] Admin: 12/30/18 06:40 Dose: 10 mg Documented by: [email or web address] Admin: 12/29/18 23:24 Dose: 10 mg Documented by: [email or web address] Admin: 12/29/18 17:13 Dose: 10 mg Documented by: [id number] Admin: 12/29/18 12:50 Dose: 10 mg Documented by: [email or web address] Nicotine (Nicoderm) 21 mg TOPICAL DAILY@1000 REPLACED BY [facility] Last Admin: 12/31/18 10:07 Dose: 21 mg Documented by: Admin: 12/30/18 09:24 Dose: 21 mg Documented by: [id number] Oxcarbazepine [ Trileptal] 150 Mg Tablet 150 mg PO HS REPLACED BY [facility] Last Admin: 12/30/18 20:52 Dose: 150 mg Documented by: Admin: 12/29/18 20:54 Dose: 150 mg Documented by: MOOKIE Oxycodone HCl (Roxicodone) 10 mg PO Q4HP PRN PRN Reason: PAIN LEVEL 3-6 Last Admin: 12/31/18 10:05 Dose: 10 mg Documented by: Admin: 12/31/18 04:46 Dose: 10 mg Documented by: Admin: 12/31/18 00:17 Dose: 10 mg Documented by: Admin: 12/30/18 20:47 Dose: 10 mg Documented by: Admin: 12/30/18 15:37 Dose: 10 mg Documented by: [id number] Paroxetine HCl (Paxil) 30 mg PO DAILY REPLACED BY [facility] Last Admin: 12/31/18 09:18 Dose: 30 mg Documented by: Admin: 12/30/18 09:14 Dose: 30 mg Documented by: TITO Melloigned by: LUZ Budesonide/Formoterol Fumarate [Symbicort 80-4.5 Mcg] Inhaler 1 dose INH BID REPLACED BY [facility] Last Admin: 12/31/18 09:19 Dose: Not Given Documented by: Admin: 12/30/18 20:43 Dose: Not Given Documented by: Admin: 12/30/18 11:30 Dose: Not Given Documented by: [email or web address] Admin: 12/29/18 20:58 Dose: Not Given Documented by: MOOKIE Ropinirole HCl (Requip) 1 mg PO DAILY REPLACED BY [facility] Last Admin: 12/31/18 09:18 Dose: 1 mg Documented by: Admin: 12/30/18 09:16 Dose: 1 mg Documented by: TITO Cosigned by: LUZ Ropinirole HCl (Requip) 3 mg PO HS REPLACED BY [facility] Last Admin: 12/30/18 20:40 Dose: 3 mg Documented by: Admin: 12/29/18 20:55 Dose: 3 mg Documented by: MOOKIE Shift Summary 12/31/18 03:14 Shift Summary by Maggie Catherine Slept most of the night. Up ad kristen in room, voiding w/o problems. Needs reminding not to flush BM. Stayed another night d/t N/V after eating yesterday. Has had soup & cracker tonight w/o nausea/emesis. Hoping to go home today. Initialized on 12/31/18 03:14 - END OF NOTE
== END 2018-12-31 13:00 | disposition home or self-care (01) ==
LOC: ED 02:09 → MEDSUR 02:09 → ED 06:43
PROVIDERS: ADMIT Family Medicine Adult Medicine; ATTEND Family Medicine Adult Medicine